=== PATIENT | female | born 1945 | race Caucasian/White ===

== ENCOUNTER 2024-01-18 13:16 | Inpatient (IN) | payer MEDICARE, SELFPAY ==
[2024-01-18] VITALS (51 sets, daily range): BP systolic 127–254; BP diastolic 45–152; BMI 30.4
[2024-01-18 10:07] LABS: % Basophils 1.2 % (0-2); % Eosinophils 2.6 % (0-6); % Immature Granulocytes 0.4 % (0-0.5); % Monocytes 7.7 % (1.7-9.3); % Neutrophils 74.1 % (42.2-75.2); Absolute Basophils 0.1 10^3/uL (0-0.2); Absolute Eosinophils 0.3 10^3/uL (0-0.7); Absolute Lymphocytes 1.4 10^3/uL (1.2-3.4); Absolute Monocytes 0.8 10^3/uL (0.1-0.6); Absolute Neutrophils 7.6 10^3/uL (1.4-6.5); Hematocrit 34.2 % (37.0-47.0); Hemoglobin 11.9 g/dL (12.0-16.0); Mean Corp Hgb Conc. 34.8 g/dL (33.0-37.0); Mean Corpuscular Hgb 31.7 pg (27.0-31.0); Mean Corpuscular Volume 91.2 fL (81.0-99.0); Mean Platelet Volume 10.8 fL (7.4-10.4); Nucleated Red Blood Cells % 0 %; Platelet Count 228 10^3/uL (130-400); Red Blood Cell Count 3.75 10^6/uL (4.20-5.40); Red Cell Dist. Width 12.5 % (11.5-14.5); White Blood Cell Count 10.2 10^3/uL (4.8-10.8)
--- NOTE | 2024-01-18 10:18 | ED.GENMED ---
History of Present Illness
<Rosey Kaye PA-C - Last Filed: 01/18/24 16:08>
General
Chief Complaint: Dizziness
Source: patient and ambulance crew
Exam Limitations: clinical condition
Time Seen by Provider: 01/18/24 10:08
Nursing documentation reviewed up to this point in time: agreed with
Travel History
Have you had any contact with someone who has COVID-19?: No
Do you have any symptoms of coronavirus? Fever > 100 degrees, chills, cough, shortness of breath, sore throat, loss of taste or smell, muscle aches, or headache?: No
History of Present Illness
History of Present Illness:
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
from home via ems after called 911 because pt fell in the bathroom
she apparently got up to go to the bathroom and felt dizzy and then fell to the ground. she believes she hit her head onthe tub without LOC
no thinners
has mild right lateral hip pain but is able to move her hip
her was unablle to help pt up from the ground
according to EMS she has chronic aphasia and has no change to her baseline, but her is not here yet to corroborate.
pt has no headache, back pain, cp, sob, abdominal pain, focal weakness
she has not been able to qualify the dizziness.
pt had a stroke in october 2023 and went to [facility] for rehab
she had NANCY while there.
Past History
<Rosey Kaye PA-C - Last Filed: 01/18/24 16:08>
Past History
ED Past Medical History: Arrthythmia, CAD, HTN, Hypercholesterolemia and NIDDM
ED Past Surgical History: Appendectomy, Cardiac (cabg) and Cholecystectomy
Social History
Tobacco: Non-smoker
Drug: None
Personal:
Review of Systems
<Rosey Kaye PA-C - Last Filed: 01/18/24 16:08>
Review of Systems
Allergies reviewed?: Yes
All Other Systems: Not applicable
Phy Exam
<Rosey Kaye PA-C - Last Filed: 01/18/24 16:08>
Physical Exam
Physical Exam:
GENERAL: Alert , in no apparent distress
head: ncat
EYE: pupils equal and reactive
NECK: Supple
ENT: b/l TM s clear, pharynx erythematous but no tonsillar hypertrophy or exudates
CARDIAC: Regular rate and rhythm, no edema
LUNGS: Clear breath sounds bilaterally, no acute respiratory distress, no wheezes/rales/rhonchi, occ cough
ABDOMEN: Soft, without focal tenderness, no r/g, no cvat, normal bowel sounds
NEUROLOGICAL: Alert and oriented, cn no facial asymmetry, expressive aphasai mixes some words, moving all extremeites
SKIN: Warm and dry, skin intact.
MUSCULOSKELETAL: No edema, well perfused.
no bruising
mild right lateral hip tenderness, full rom
PSYCH: Normal and appropriate interaction.
Course
<Rosey Kaye PA-C - Last Filed: 01/18/24 16:08>
Orders/Labs/Results
Orders:
Orders
01/18/24 09:48
Electrocardiogram (*1) Urgent
Reason for Study: Vertigo / Dizzy
EKG- Treatment ONCE
01/18/24 09:49
Complete Blood Count/With Diff Urgent
Troponin I Urgent
01/18/24 09:53
Cardiac Monitoring- Treatment ONCE
01/18/24 10:18
Hip, Right 2-3 Views [CR Hip - RT w/wo Pel 2-3 Vw*] Urgent
Comment:
Reason For Exam: right lateral hip pain after fall
Include a pelvis x-ray?: Yes
01/18/24 10:19
CT Head W/o Iv Contrast Urgent
Comment:
Reason For Exam: dizzy, fall; h/o cva
01/18/24 10:38
Comprehensive Metabolic Panel Urgent
Magnesium Urgent
Comment: ADD ON
01/18/24 10:49
COVID-19 Antigen Urgent
Source: Nasal Swab
01/18/24 11:30
Nitroglycerin 100 mg/250 ml [Nitroglycerin Premix] 100 mg in 250 ml IV PER PROTOCOL
Initial dose in mcg/min, then titrate:: 5
Titrate to keep:: Other
Titrate to keep other:: SBP between 170-190mmHg
Titrate by mcg/min:: 5 mcg/min, may increase by 10 mcg/min if dose > 20 mcg/min
Frequency of titrations (minutes):: every 3-5 minutes
Maximum dose in mcg/min:: 200
Begin to taper infusion when:: Remained at goal for 2hrs
Taper by mcg/min:: 5 mcg/min
Frequency of taper (minutes) if patient maintains goal:: 30
Taper to off?: Yes
If infusion off & no longer maintaining goal:: Contact Provider
01/18/24 11:44
Straight cath- Treatment ONCE
01/18/24 11:47
Urinalysis Reflex To Culture Urgent
Date Specimen was Collected: 01/18/24
Time Specimen was Collected: 11:46
Urine Microscopic Reflex Cult Urgent
Urine Culture Urgent
AJTIN Source: U
Specimen Description:
Date Specimen was Collected: 01/18/24
Time Specimen was Collected: 11:46
01/18/24 12:37
Admit/Transfer Patient As Directed
Co-Sign Provider:
Level of Care: Inpatient admission
Assign to:: ICU
Physician / Group: marii
Diagnosis: hypertensive emergency
Reason for Hospitalization: hypertensive emergency
Expected length of stay greater than two midnights?: Yes
ELOS- Estimated Length of Stay in days: 2
I certify the patient meets the requirements for IP care: Yes
01/18/24 12:38
Code Status As Directed
Resuscitation Status: Full Code
01/18/24 12:45
0.9% Sodium Chloride 1000 ml [Nss] 1,000 ml IV 80 mls/hr
01/18/24 12:49
Potassium Chloride [KCl] 20 meq PO NOW STA
01/18/24 14:12
Dextrose 50%-Water [Dextrose 50% Syringe] 12.5 grams IV [id number] PRN
Docusate Sodium [Colace] 200 mg PO DAILY PRN
Glucagon [GlucaGen] 1 mg IM PRN PRN
Sennosides [Senokot] 8.6 mg PO DAILY PRN
01/18/24 14:12
Activity As Directed
Activity Level: As Tolerated
Bedside Glucose Monitoring As Directed
Frequency: AC&HS
Comment: Change to q6h if pt on TPN, tube feeding or not eating
Vital Signs As Directed
Frequency: Per unit guidelines
DX Deep Vein Thrombosis Video Routine
01/18/24 Dinner
2000 calorie (17 carb) Diabetic
01/18/24 15:14
Troponin I Q6H
01/18/24 16:30
Insulin Aspart Corrective Low [Novolog Flexpen-Low Resistance] See Protocol SC AC
01/18/24 18:00
Famotidine [Pepcid] 10 mg PO QPM
01/18/24 20:00
Carvedilol [Coreg] 12.5 mg PO BID
Heparin 5,000 units SC Q12
01/18/24 20:12
Troponin I Q6H
01/18/24 22:00
Atorvastatin [Lipitor] 80 mg PO HS
Gabapentin [Neurontin] 300 mg PO HS
01/19/24 02:12
Troponin I Q6H
01/19/24 06:00
Complete Blood Count/With Diff IN AM
Comprehensive Metabolic Panel IN AM
Glycohemoglobin (HgbA1c) IN AM
01/19/24 08:00
Cholecalciferol (Vitamin D3) [VITAMIN D3 (cholecalciferol)] 25 mcg PO DAILY
Clopidogrel Bisulfate [Plavix] 75 mg PO DAILY
Ezetimibe [Zetia] 10 mg PO DAILY
01/19/24 12:00
Escitalopram Oxalate [Lexapro] 10 mg PO NOON
Abnormal Lab Results
01/18/24 01/18/24 01/18/24
09:49 10:38 11:47
RBC 3.75 L 10^6/uL
(4.20-5.40)
Hgb 11.9 L g/dL
(12.0-16.0)
Hct 34.2 L %
(37.0-47.0)
MCH 31.7 H pg
(27.0-31.0)
MPV 10.8 H fL
(7.4-10.4)
Absolute Neuts (auto) 7.6 H 10^3/uL
(1.4-6.5)
Absolute Monos (auto) 0.8 H 10^3/uL
(0.1-0.6)
Lymphocytes % 14.0 L %
(20.5-51.1)
Potassium 3.2 L mmol/L
(3.5-5.1)
BUN 35 H mg/dl
(7-17)
Creatinine 3.0 H mg/dL
(0.6-1.0)
Glucose 134 H mg/dl
(70-99)
Troponin I 0.077 H* ng/ml
Total Protein 5.7 L g/dl
(6.3-8.2)
Albumin 3.2 L g/dl
(3.5-5.0)
Urine RBC 3-6 A /HPF
(0-2)
Urine WBC (Reflex) 11-15 A /HPF
(0-5)
Urine Bacteria (Reflex) Many A
(Negative)
Urine Glucose Trace A
(Negative)
Urine Albumin (Reflex) 3+ A
(Neg - Trace)
01/18/24 09:49
01/18/24 10:38
Vital Signs
Initial and Last Documented VS:
Initial Vital Signs
BP
180/91
01/18/24 09:40
Last Documented Vital Signs
Temp Pulse Resp BP Pulse Ox
97.7 F 59 15 212/83 100
01/18/24 14:45 01/18/24 13:45 01/18/24 13:15 01/18/24 13:45 01/18/24 13:30
<Shaniqua Madden MD - Last Filed: 01/18/24 11:30>
Orders/Labs/Results
Orders:
Orders
01/18/24 09:48
Electrocardiogram (*1) Urgent
Reason for Study: Vertigo / Dizzy
EKG- Treatment ONCE
01/18/24 09:49
Complete Blood Count/With Diff Urgent
Troponin I Urgent
01/18/24 09:53
Cardiac Monitoring- Treatment ONCE
01/18/24 10:18
Hip, Right 2-3 Views [CR Hip - RT w/wo Pel 2-3 Vw*] Urgent
Comment:
Reason For Exam: right lateral hip pain after fall
Include a pelvis x-ray?: Yes
01/18/24 10:19
CT Head W/o Iv Contrast Urgent
Comment:
Reason For Exam: dizzy, fall; h/o cva
01/18/24 10:38
Comprehensive Metabolic Panel Urgent
Magnesium Urgent
Comment: ADD ON
01/18/24 10:49
COVID-19 Antigen Urgent
Source: Nasal Swab
01/18/24 11:30
Nitroglycerin 100 mg/250 ml [Nitroglycerin Premix] 100 mg in 250 ml IV PER PROTOCOL
Initial dose in mcg/min, then titrate:: 5
Titrate to keep:: Other
Titrate to keep other:: SBP between 170-190mmHg
Titrate by mcg/min:: 5 mcg/min, may increase by 10 mcg/min if dose > 20 mcg/min
Frequency of titrations (minutes):: every 3-5 minutes
Maximum dose in mcg/min:: 200
Begin to taper infusion when:: Remained at goal for 2hrs
Taper by mcg/min:: 5 mcg/min
Frequency of taper (minutes) if patient maintains goal:: 30
Taper to off?: Yes
If infusion off & no longer maintaining goal:: Contact Provider
01/18/24 11:44
Straight cath- Treatment ONCE
01/18/24 11:47
Urinalysis Reflex To Culture Urgent
Date Specimen was Collected: 01/18/24
Time Specimen was Collected: 11:46
Urine Microscopic Reflex Cult Urgent
Urine Culture Urgent
JATIN Source: U
Specimen Description:
Date Specimen was Collected: 01/18/24
Time Specimen was Collected: 11:46
01/18/24 12:37
Admit/Transfer Patient As Directed
Co-Sign Provider:
Level of Care: Inpatient admission
Assign to:: ICU
Physician / Group: marii
Diagnosis: hypertensive emergency
Reason for Hospitalization: hypertensive emergency
Expected length of stay greater than two midnights?: Yes
ELOS- Estimated Length of Stay in days: 2
I certify the patient meets the requirements for IP care: Yes
01/18/24 12:38
Code Status As Directed
Resuscitation Status: Full Code
01/18/24 12:45
0.9% Sodium Chloride 1000 ml [Nss] 1,000 ml IV 80 mls/hr
01/18/24 12:49
Potassium Chloride [KCl] 20 meq PO NOW STA
01/18/24 14:12
Dextrose 50%-Water [Dextrose 50% Syringe] 12.5 grams IV [id number] PRN
Docusate Sodium [Colace] 200 mg PO DAILY PRN
Glucagon [GlucaGen] 1 mg IM PRN PRN
Sennosides [Senokot] 8.6 mg PO DAILY PRN
01/18/24 14:12
Activity As Directed
Activity Level: As Tolerated
Bedside Glucose Monitoring As Directed
Frequency: AC&HS
Comment: Change to q6h if pt on TPN, tube feeding or not eating
Vital Signs As Directed
Frequency: Per unit guidelines
DX Deep Vein Thrombosis Video Routine
01/18/24 Dinner
2000 calorie (17 carb) Diabetic
01/18/24 15:14
Troponin I Q6H
01/18/24 16:30
Insulin Aspart Corrective Low [Novolog Flexpen-Low Resistance] See Protocol SC AC
01/18/24 18:00
Famotidine [Pepcid] 10 mg PO QPM
01/18/24 20:00
Carvedilol [Coreg] 12.5 mg PO BID
Heparin 5,000 units SC Q12
01/18/24 20:12
Troponin I Q6H
01/18/24 22:00
Atorvastatin [Lipitor] 80 mg PO HS
Gabapentin [Neurontin] 300 mg PO HS
01/19/24 02:12
Troponin I Q6H
01/19/24 06:00
Complete Blood Count/With Diff IN AM
Comprehensive Metabolic Panel IN AM
Glycohemoglobin (HgbA1c) IN AM
01/19/24 08:00
Cholecalciferol (Vitamin D3) [VITAMIN D3 (cholecalciferol)] 25 mcg PO DAILY
Clopidogrel Bisulfate [Plavix] 75 mg PO DAILY
Ezetimibe [Zetia] 10 mg PO DAILY
01/19/24 12:00
Escitalopram Oxalate [Lexapro] 10 mg PO NOON
Abnormal Lab Results
01/18/24 01/18/24 01/18/24
09:49 10:38 11:47
RBC 3.75 L 10^6/uL
(4.20-5.40)
Hgb 11.9 L g/dL
(12.0-16.0)
Hct 34.2 L %
(37.0-47.0)
MCH 31.7 H pg
(27.0-31.0)
MPV 10.8 H fL
(7.4-10.4)
Absolute Neuts (auto) 7.6 H 10^3/uL
(1.4-6.5)
Absolute Monos (auto) 0.8 H 10^3/uL
(0.1-0.6)
Lymphocytes % 14.0 L %
(20.5-51.1)
Potassium 3.2 L mmol/L
(3.5-5.1)
BUN 35 H mg/dl
(7-17)
Creatinine 3.0 H mg/dL
(0.6-1.0)
Glucose 134 H mg/dl
(70-99)
Troponin I 0.077 H* ng/ml
Total Protein 5.7 L g/dl
(6.3-8.2)
Albumin 3.2 L g/dl
(3.5-5.0)
Urine RBC 3-6 A /HPF
(0-2)
Urine WBC (Reflex) 11-15 A /HPF
(0-5)
Urine Bacteria (Reflex) Many A
(Negative)
Urine Glucose Trace A
(Negative)
Urine Albumin (Reflex) 3+ A
(Neg - Trace)
01/18/24 09:49
01/18/24 10:38
Vital Signs
Initial and Last Documented VS:
Initial Vital Signs
BP
180/91
01/18/24 09:40
Last Documented Vital Signs
Temp Pulse Resp BP Pulse Ox
97.7 F 59 15 212/83 100
01/18/24 14:45 01/18/24 13:45 01/18/24 13:15 01/18/24 13:45 01/18/24 13:30
<Rosey Kaye PA-C - Last Filed: 01/18/24 16:08>
MDM/Problems Addressed
Differential Diagnosis Includes:
hypertensive urgency/emergency, fall, stroke, acs
MDM/Problems Addressed:
78 y/o F
h/o stroke with residual aphasia
got dizzy in the bathroom today and fell
no LOC
no headache, cp, sob
having elevated BPs 200s/100s;
didn't take her meds today
had to call 911 to get her up
ekg with nonspecific st flattening
very hypertensive both arms
looks otherwise well
trop bumped
cr elevated 3
bladder scan 360, straight cath done
seen by ed attending
started nitro drip and amidtted
<Rosey Kaye PA-C - Last Filed: 01/18/24 16:08>
*Critical Care Note
Total Time (30-74mins, 75-104mins- exclusive of procedures): Not Applicable
ED Attending Note
<Rosey Kaye PA-C - Last Filed: 01/18/24 16:08>
-
Portions of this chart may have been created with voice recognition software.� Occasional wrong word or��sound alike� substitutions may have occurred due to the inherent limitations of voice recognition software.
<Shaniqua Madden MD - Last Filed: 01/18/24 11:30>
ED Attending Note
Patient seen and examined by attending physician: Yes
I performed the substantive portion of visit, reviewed & personally made and approve the management plan that is documented in note by myself or YELITZA.: Yes
ED Attending Note:
Patient presents comfortable appearing. She adamantly denies chest pain or shortness of breath. She denies headache. However, I am concerned for possible hypertensive emergency given her elevated troponin, new T wave flattening and acute renal
failure. Nitro drip started to control her blood pressure. On exam, patient is fully awake, alert and conversational. She is breathing comfortably and lungs are clear.
Discharge Plan
Departure
Patient Disposition: Admit
Date of Disposition: 01/18/24
Time of Disposition: :28
Admit to: IVU
Presentation/result/management discussed w/ accepting MD/DO: Hospitalist
Condition: Fair
Covid-19: Not Applicable
Discharge Problem:
Hypertensive emergency
Interventions
Interventions:
*Risk Screen - Suicide Last Done: 01/18/24 14:39
*General Assessment Last Done: 01/18/24 09:41
*Neglect/Abuse Screening Last Done: 01/18/24 09:41
*ED COVID-19 Vaccine History Last Done: 01/18/24 09:47
*Nursing Disposition Last Done: 01/18/24 13:50
ED-Skin Assessment Last Done: 01/18/24 09:50
ED- Neurological Assessment Last Done: 01/18/24 09:50
ED-Musculoskeletal Assessment Last Done: 01/18/24 09:50
ED Swallowing Screen Last Done: 01/18/24 13:35
Discharge Date and Time
Discharge Date/Time: 01/18/24 14:04
[2024-01-18 10:34] LABS: Troponin I 0.077 ng/ml
[2024-01-18 10:59] LABS: ALT (SGPT) 12 U/L (0-35); AST (SGOT) 24 U/L (14-36); Albumin 3.2 g/dl (3.5-5.0); Alkaline Phosphatase 60 U/L (38-126); Blood Urea Nitrogen 35 mg/dl (7-17); Calcium 8.8 mg/dl (8.4-10.2); Carbon Dioxide 29 mmol/L (22-30); Chloride 106 mmol/L (98-107); Estimated Creatinine Clearance 16 ml/min; Glucose 134 mg/dl (70-99); Potassium 3.2 mmol/L (3.5-5.1); Sodium 138 mmol/L (135-145); Total Bilirubin 0.9 mg/dl (0.2-1.3); Total Protein 5.7 g/dl (6.3-8.2); eGFR 15.62
[2024-01-18 11:17] LABS: COVID-19 Antigen Negative (Negative)
[2024-01-18] MEDS: NITROGLYCERIN PREMIX 250 IV (11:39)
[2024-01-18 12:20] LABS: Urine Albumin 3+ (Neg - Trace); Urine Bilirubin Negative (Negative); Urine Character Clear (Clear); Urine Color Yellow; Urine Glucose Trace (Negative); Urine Ketone Negative (Negative); Urine Leukocyte Negative (Negative); Urine Nitrite Negative (Negative); Urine Occult Blood Negative (Negative); Urine Specific Gravity 1.015 (<1.030); Urine Urobilinogen Negative (Neg - 1+)
[2024-01-18 12:32] LABS: Urine Amorphous Seen
[2024-01-18 12:33] LABS: Urine Bacteria Many (Negative)
--- NOTE | 2024-01-18 12:44 | HPS.HSE ---
Family Physician
-
Family Physician: Anson Bauman MD
Chief Complaint
-
fall
History of Present Illness
78-year-old female past medical history of CAD status post CABG, arrhythmia unknown type, diabetes, CKD, CVA with residual expressive aphasia and right-sided weakness presenting from home after she felt dizzy and fell in the bathroom. She thinks
she did hit her head on the tub but denies losing consciousness. She did hurt her right hip and has some soreness.
She denies any chest pain or shortness of breath or nausea or vomiting or sweating. She denies any difficulty speaking or weakness that is worse than her baseline. She did have some headache in the morning which she continues to have. Denies any
confusion. As per EMS no change in baseline mental status.
Patient states her checks her blood pressure every day and it had been normal until today.
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
She denies smoking or alcohol use.
Medical History
Past Medical History
Past Medical History: Reports Other (CAD status post CABG, arrhythmia unknown type, diabetes, CKD, CVA with residual expressive aphasia)
Past Surgical History: Reports None and Cardiac (CABG )
Social History
Tobacco: Non-smoker
Alcohol: None
Drug: None
Family History
Family History: Not pertinent
Allergies / Home Medications
Allergies reflects when Allergies were last updated in [facility].
Home Medications with original date entered in [facility]
Allergy/Medication List:
Allergies
Allergy/AdvReac Type Severity Reaction Status Date / Time
Cephalosporins Allergy Rash Verified 01/18/24 09:35
penicillin G Allergy Rash Verified 01/18/24 09:35
Penicillins Allergy Rash Verified 01/18/24 09:35
Home Medications
escitalopram oxalate 20 mg tablet 10 mg PO NOON 04/15/16
ezetimibe 10 mg tablet 10 mg PO DAILY 04/15/16
famotidine 20 mg tablet 10 mg PO QPM 04/15/16
Generic Cold Medicine Am 1 cap PO DAILYPRN PRN congestion 01/18/24
Generic Cold Medicine Pm 2 cap PO HSPRN PRN congestion 01/18/24
acetaminophen 650 mg tablet,extended release 1,300 mg PO BIDPRN PRN mild pain 01/18/24
atorvastatin 80 mg tablet 80 mg PO HS 01/18/24
carvedilol 12.5 mg tablet 12.5 mg PO BID 01/18/24
cholecalciferol (vitamin D3) 25 mcg (1,000 unit) tablet 25 mcg PO DAILY 01/18/24
clopidogrel 75 mg tablet 75 mg PO DAILY 01/18/24
docusate sodium 100 mg capsule (Stool Softener) 200 mg PO DAILY PRN constipation 01/18/24
gabapentin 300 mg capsule 300 mg PO HS 01/18/24
insulin glargine 100 unit/mL (3 mL) subcutaneous pen (Lantus Solostar U-100 Insulin) 28 - 32 unit SC HS 01/18/24
insulin lispro 100 unit/mL subcutaneous pen (Humalog KwikPen (U-100) Insulin) 0 sliding scale dose SC DIRECTED 01/18/24
sennosides 8.6 mg tablet (senna) 8.6 mg PO DAILY PRN constipation 01/18/24
Review of Systems
-
History Source: Patient
A 12 point ROS was completed and negative except as noted: Yes
Constitutional: Reports No Symptoms
EENT: Reports No Symptoms
Respiratory: Reports No Symptoms
Cardiac: Reports No Symptoms
Abdomen/GI: Reports No Symptoms
: Reports No Symptoms
Musculoskeletal: Reports No Symptoms
Skin: Reports No Symptoms
Neurological: Reports No Symptoms
Endocrine: Reports No Symptoms
Hematologic/Lymphatic: Reports No Symptoms
Psych: Reports No Symptoms
Physical Exam
Vital Signs
Vital Signs
Temp Pulse Resp BP Pulse Ox
97.8 F 48 15 238/73 99
02/28/24 09:41 01/18/24 12:00 01/18/24 11:34 01/18/24 11:54 01/18/24 12:00
Physical Exam
General: Well Developed, Well Nourished and No Apparent Distress
HEENT: NormoCephalic, Moist mucous membranes and Atraumatic
Respiratory: Clear
Cardiac: S1/S2 and Regular Rhythm; No Murmur or Rub
GI: Soft, Non Tender, Non Distended and Normal Bowel Sounds; No Organomegaly
Rectal: Deferred by Provider
Musculoskeletal: No Clubbing, No Cyanosis and No Edema
Skin: No Rash
Neuro: Nonfocal/grossly intact
Laboratory Results
-
01/18/24 09:49
01/18/24 10:38
Laboratory Results
Total Bilirubin 0.9 mg/dl (0.2-1.3) 01/18/24 10:38
AST 24 U/L (14-36) 01/18/24 10:38
ALT 12 U/L (0-35) 01/18/24 10:38
Alkaline Phosphatase 60 U/L (38-126) 01/18/24 10:38
Troponin I 0.077 ng/ml H* 01/18/24 09:49
Data Reviewed
-
Lab Data: Labs Reviewed by me
Old Records: Reviewed
Impression/Plan
-
IMPRESSION:
PLAN:
# Hypertensive urgency/emergency due to NANCY/potential NSTEMI
-Peak blood pressure 247/63
-Nitroglycerin drip started
-No neurological deficits
-See individually below
# Non-VA troponin elevation secondary to demand ischemia from hypertension versus rule out NSTEMI
# History of CAD status post CABG
-EKG shows PVCs, nonspecific T wave inversions
-Troponin of 0.077
-Trend troponins
-Check chest x-ray
-Continue Plavix
-Continue statin
-Continue Coreg
-Cardiology consulted
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
-IV fluids
-Urinalysis pending
# Hypokalemia
-Replete potassium
# Fall with injury
-Hip x-ray pending
-CT head pending
History of arrhythmia unknown type as per records
Prior CVA with residual expressive aphasia/right-sided weakness
-Continue Plavix
Type 2 diabetes
-Continue Lantus
-Insulin sliding scale
Anxiety/depression
-Continue Lexapro
Hyperlipidemia
-Continue statin, Zetia
Chronic anemia
-Hemoglobin stable
History of kidney stones
Full code
DVT prophylaxis�heparin
Diabetic diet
[2024-01-18] MEDS: KCL 20 MEQ PO (13:41)
[2024-01-18] MEDS: APRESOLINE 10 MG IV (13:41)
[2024-01-18] MEDS: TYLENOL 1000 MG PO (13:42)
--- NOTE | 2024-01-18 14:50 | CON.INTV ---
Documented by User: Kamila Pa MD, Resident 01/18/24 17:16
Consultation
Consultation Request
Date/Time Consultation Requested: 14:00
Date/Time Consultation Performed: 14:00
Medical History
-
Chief Complaint: Syncope
History of Present Illness:
80 yr old female with hx of CVA (Sep 2023), CAD + CABG, arrhythmia, diabetes, CKD presented to ED via EMS following a fall in her bathroom. She stated that she was walking to her bathroom when she felt dizzy and fell to the bathroom floor. She
denies any LOC but reported a mild headache, and minor pain in her hip from impacting the tub upon her fall. Her blood pressure at home was 220/105. She denies any confusion, chest pain, SOB, nausea, sweating, reflux, or cough.
Per her , she has seemed a little more unsteady, ' bumping into things more' and has had more trouble with her speech within the past few days. Of note, she has some residual aphasia and right-sided weakness from a CVA in September for which
she was treated in [place] and continues to receive outpatient rehab. Her husbands checks her blood pressure everyday with an automated cuff and he asserts that her blood pressures are usually under 160s (systolic) and generally range from
130s-140s. Notably, her Carvedilol dose was halved to 12.5mh twice daily after her hospitalization for CVA in September.
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
She sees a human resources vice president with [facility] and has an upcoming appointment in January.
She denies smoking or alcohol use.
Past Medical History
Past Medical History: Arrhythmias, CAD, CVA, HTN, Hypercholesterolemia and IDDM
Past Surgical History: Cardiac
Social History
Tobacco: Non-smoker
Alcohol: None
Drug: None
Personal:
Living: With Family
Family History
Family History: Reviewed & Not Pertinent
Allergies / Home Medications
Allergies
Allergy/AdvReac Type Severity Reaction Status Date / Time
Cephalosporins Allergy Rash Verified 01/18/24 09:35
penicillin G Allergy Rash Verified 01/18/24 09:35
Penicillins Allergy Rash Verified 01/18/24 09:35
Home Medications
Medication Instructions Recorded Confirmed Last Taken Type
escitalopram oxalate 20 mg tablet 10 mg PO [facility] 04/15/16 01/18/24 01/17/24 History
ezetimibe 10 mg tablet 10 mg PO DAILY High Cholesterol 04/15/16 01/18/24 01/17/24 History
famotidine 20 mg tablet 10 mg PO QPM Gastrointestinal Issue 04/15/16 01/18/24 01/17/24 History
Generic Cold Medicine Am 1 cap PO DAILYPRN PRN congestion 01/18/24 01/18/24 01/17/24 History
Generic Cold Medicine Pm 2 cap PO HSPRN PRN congestion 01/18/24 01/18/24 01/17/24 History
acetaminophen 650 mg 1,300 mg PO BIDPRN PRN mild pain 01/18/24 01/18/24 01/18/24 History
tablet,extended release
atorvastatin 80 mg tablet 80 mg PO HS High Cholesterol 01/18/24 01/18/24 01/17/24 History
carvedilol 12.5 mg tablet 12.5 mg PO BID Blood Pressure 01/18/24 01/18/24 01/17/24 History
cholecalciferol (vitamin D3) 25 25 mcg PO DAILY Supplement 01/18/24 01/18/24 01/17/24 History
mcg (1,000 unit) tablet
clopidogrel 75 mg tablet 75 mg PO DAILY Blood Clot 01/18/24 01/18/24 01/17/24 History
Prevention/Tx
docusate sodium 100 mg capsule 200 mg PO DAILY PRN constipation 01/18/24 01/18/24 3 Days Ago History
(Stool Softener) ~01/15/24
gabapentin 300 mg capsule 300 mg PO HS Pain 01/18/24 01/18/24 01/17/24 History
insulin glargine 100 unit/mL (3 28 - 32 unit SC HS Diabetes 01/18/24 01/18/24 01/17/24 History
mL) subcutaneous pen (Lantus
Solostar U-100 Insulin)
insulin lispro 100 unit/mL 0 sliding scale dose SC 01/18/24 01/18/24 01/17/24 History
subcutaneous pen (Humalog KwikPen DIRECTED Diabetes
(U-100) Insulin)
sennosides 8.6 mg tablet (senna) 8.6 mg PO DAILY PRN constipation 01/18/24 01/18/24 3 Days Ago History
~01/15/24
Review of Systems
-
History Source: Patient and Family ()
Constitutional: Fever (n), Fatigue (n) and Other (Headache)
Respiratory: No Symptoms, Cough (n) and Trouble Breathing (n)
Cardiac: Chest Pain, Diaphoresis (n) and Palpitations (n)
Abdomen/GI: No Symptoms
: No Symptoms
Musculoskeletal: Muscle Pain (right hip soreness)
Neuro: Dizzy (n) and Headache
Vitals / Labs / Diagnostic Testing
Vital Signs
Temp Pulse Resp BP Pulse Ox
97.7 F 59 15 212/83 100
01/18/24 14:45 01/18/24 13:45 01/18/24 13:15 01/18/24 13:45 01/18/24 13:30
Lab Data
01/18/24 09:49
01/18/24 10:38
Laboratory Results
01/18/24
15:14
PT 14.4
INR 1.12
APTT 26.2
Diagnostic Testing:
Physical Exam
-
HEENT: Normocephalic, Anicteric and Moist Mucous Membranes
Cardiovascular: S1/S2, Regular Rhythm, Peripheral Edema (n) and Calf Tenderness (n)
Respiratory: Clear, Wheeze (n), Rales, Rhonchi (n), Non-Labored Respirations and Accessory Resp Muscle Use (n)
GI: Soft, Non Distended and Non Tender
Neurology: Awake, Alert, Oriented, AO x 3 and Other (mild dysphasia, mild baseline R sided weakness)
Skin: Warm and Dry
General: Respiratory Distress (n), Comfortable (n) and Fever
Exam:
Right hip mildly tender. No bruising or swelling, range of motion preserved
Assessment
-
Hypertensive emergency
Bradycardia
Elevated Troponin
Acute kidney injury on Chronic kidney disease
Hypokalemia
Elevated Blood glucose
Conditions Prior to Admission:
- Hypertension
- History of CVA
- CAD Status post CABG
- CKD
- Diabetes
- Hyperlipidemia
PLAN:
Hypertensive emergency:
Troponin elevated: 0.077 --> 0.061, trending down
BP on arrival at ED 180/91. Reached to 247/63. Currently controlled at 180s to 190s
Nitroglycerin IV gtt given. Discontinued due to headache. Switched to Nicardipine IV. Carvedilol, Hydralazine PRN for BP control
Goal is 25% reduction in BP in first 24 hrs. Avoid rapid reduction to allow organ perfusion
Bradycardic at HR high 40s to 50s. Patient is asymptomatic. Continue to monitor
NANCY on CKD:
BUN 35, Cr 3.0. Known Creatinine from 2016 1.2
Trend Creatinine
Urine albumin 3+
Avoid nephrotoxic agents
Consider nephrology consult if creatinine trends up
Correct lytes as needed
DATA:
Head CT 01/18: No acute intracranial process
CXR 01/18: Accentuated heart size, top normal. No vascular congestion or congestive heart failure. No evidence of pneumonia. No pneumothorax or pleural effusion appreciated.

Documented by User: Tristan Salter MD 01/18/24 17:18
Consultation
Consultation Request
Date/Time Consultation Requested: 01/18/2024 - 14:17
Date/Time Consultation Performed: 01/18/2024 - 14:25
Requesting Provider: Dr. Johnson
Performing Provider: Dr. Salter
Reason for Consultation: HTN crisis
[2024-01-18] MEDS: NSS 1000 IV (14:53)
[2024-01-18 15:04] LABS: Magnesium 1.9 mg/dl (1.6-2.3)
--- NOTE | 2024-01-18 15:30 | PTCARENOTE ---
Pt arrived to Rm [id number] at 1415 via stretcher from ED. Pt awake and answering questions- expressive aphasia noted which pt reports is unchanged for her. Pt received with Ntg gtt infusing at 5mcg/min at time of arrival. Pt on RA w/ Pox 98%. Denies SOB
or pain. CHG bath completed. Physical assessment and admission questions completed. Pt's not present at this time. Ntg gtt increased per ordered parameters. Orientation provided to pt on unit/plan of care/use of call [facility]. Pt verbalized
understanding of instructions to call and wait for help prior to attempting to get OOB. [facility] w/in pt reach and safe environment maintained. Dr Sow in room to see pt- Ntg gtt d/c'ed per Dr Salter. Will continue to monitor BP and start
Cardene if BP w/in ordered parameters.
[2024-01-18 15:40] LABS: APTT 26.2 Sec (23.4-35.0); INR 1.12; PT 14.4 Sec (11.4-14.6)
[2024-01-18 15:50] LABS: Troponin I 0.061 ng/ml
[2024-01-18] MEDS: KLOR-CON 40 MEQ PO (15:59)
[2024-01-18] MEDS: PEPCID 10 MG PO (17:21)
[2024-01-18] MEDS: NOVOLOG FLEXPEN-LOW RESISTANCE SC (17:21)
--- NOTE | 2024-01-18 17:56 | PTCARENOTE ---
Pt to radiology for ordered xray. No changes from previous assessment findings. Pt's and son visiting at bedside.
[2024-01-18] MEDS: COREG 12.5 MG PO (19:48)
[2024-01-18] MEDS: HEPARIN 5000 UNITS SC (19:48)
--- NOTE | 2024-01-18 20:16 | PTCARENOTE ---
Received patient AAOx3, following commands, denying pain. Expressive aphasia present intermittently. Moves all extremities. Normal sinus/sinus narendra with a first degree block and long QT. BP 170s-180s/40s-50s. 97% on room air, lung sounds clear,
diminished at the bases. Abdomen soft, round, obese, positive bowel sounds. No urine output yet this shift. Bruising on right hip from fall prior to admission. PIV patent, WNL, NSS @ 80 mls/hr running. Hourly rounding and patient safety checks
ongoing.
--- NOTE | 2024-01-18 21:01 | PTCARENOTE ---
Cannot verify vitals prior to 1900, previous shift.
[2024-01-18] MEDS: NEURONTIN 300 MG PO (21:38)
[2024-01-18] MEDS: LIPITOR 80 MG PO (21:38)
[2024-01-18] MEDS: LANTUS 0.280000000000000027 UNITS SC (21:38)
[2024-01-18 22:08] LABS: Blood Urea Nitrogen 36 mg/dl (7-17); Calcium 8.1 mg/dl (8.4-10.2); Carbon Dioxide 26 mmol/L (22-30); Chloride 107 mmol/L (98-107); Estimated Creatinine Clearance 16 ml/min; Glucose 169 mg/dl (70-99); Potassium 3.7 mmol/L (3.5-5.1); Sodium 133 mmol/L (135-145); eGFR 16.27
[2024-01-18 22:16] LABS: Troponin I 0.054 ng/ml
[2024-01-18 23:39] LABS: Glucose - Point of Care > 600 mg/dl (70-99)
[2024-01-19] VITALS (42 sets, daily range): BP systolic 96–230; BP diastolic 41–94; BMI 31.4
[2024-01-19 00:02] LABS: Glucose 143 mg/dl (70-99)
--- NOTE | 2024-01-19 00:17 | PTCARENOTE ---
PCT obtained bedside blood sugar with glucometer reading >600, blood sugar checked with a stat glucose blood draw and came back 143. Gloria Mccracken NP aware, glucometer reading >600 inaccurate. Glucometer controls done, strips not , control
solutions not .
--- NOTE | 2024-01-19 00:22 | PTCARENOTE ---
Patient voided 300 mls after being scanned for 329 mls. Otherwise patient assessment unchanged from previous. Hourly rounding and patient safety checks ongoing.
--- NOTE | 2024-01-19 04:31 | PTCARENOTE ---
Patient forgetful, reoriented to place and situation. Otherwise patient assessment unchanged from previous.
[2024-01-19] MEDS: NSS 1000 IV ×2 (05:05→17:12)
[2024-01-19 05:23] LABS: % Immature Granulocytes 0.4 % (0-0.5); % Lymphocytes 23.1 % (20.5-51.1); % Monocytes 11.3 % (1.7-9.3); % Neutrophils 62.2 % (42.2-75.2); Absolute Basophils 0.1 10^3/uL (0-0.2); Absolute Eosinophils 0.2 10^3/uL (0-0.7); Absolute Lymphocytes 1.7 10^3/uL (1.2-3.4); Absolute Monocytes 0.8 10^3/uL (0.1-0.6); Absolute Neutrophils 4.6 10^3/uL (1.4-6.5); Hematocrit 27.7 % (37.0-47.0); Hemoglobin 9.6 g/dL (12.0-16.0); Mean Corp Hgb Conc. 34.7 g/dL (33.0-37.0); Mean Corpuscular Hgb 31.3 pg (27.0-31.0); Mean Corpuscular Volume 90.2 fL (81.0-99.0); Mean Platelet Volume 10.7 fL (7.4-10.4); Nucleated Red Blood Cells % 0 %; Platelet Count 189 10^3/uL (130-400); Red Blood Cell Count 3.07 10^6/uL (4.20-5.40); Red Cell Dist. Width 12.7 % (11.5-14.5); White Blood Cell Count 7.3 10^3/uL (4.8-10.8)
[2024-01-19 05:24] LABS: Amphetamines Negative (Negative); Barbiturates Negative (Negative); Benzodiazepines Negative (Negative); Buprenorphine Negative (Negative); Cocaine Negative (Negative); Methadone Negative (Negative); Methamphetamines Negative (Negative); Opiates Negative (Negative); Phencyclidine Negative (Negative)
[2024-01-19 05:25] LABS: Marijuana Negative (Negative); Tricyclic Antidepressants Negative (Negative)
[2024-01-19 05:28] LABS: ALT (SGPT) < 10 U/L (0-35); AST (SGOT) 22 U/L (14-36); Albumin 2.9 g/dl (3.5-5.0); Alkaline Phosphatase 49 U/L (38-126); Blood Urea Nitrogen 35 mg/dl (7-17); Calcium 8.4 mg/dl (8.4-10.2); Carbon Dioxide 27 mmol/L (22-30); Chloride 109 mmol/L (98-107); Estimated Creatinine Clearance 16 ml/min; Glucose 83 mg/dl (70-99); Potassium 3.3 mmol/L (3.5-5.1); Sodium 138 mmol/L (135-145); Total Protein 5.1 g/dl (6.3-8.2); eGFR 16.27
[2024-01-19 05:37] LABS: Total Bilirubin 0.8 mg/dl (0.2-1.3)
[2024-01-19 05:58] LABS: TSH Reflex To Free T4 2.28 uIU/ml (0.47-4.68)
[2024-01-19] MEDS: KCL 40 MEQ PO (06:22)
--- NOTE | 2024-01-19 06:24 | PTCARENOTE ---
Repleted potassium PO, patient wants to get washed up later, requests to sleep longer.
--- NOTE | 2024-01-19 07:58 | W.PN.INTV ---
Today's Communication / Plan
Recommendations
Cardene gtt and start procardia
Goal SBP this afternoon <140-160mmHg
Follow up echo
Secondary HTN workup
Assessment
-
Assessment: 78-year-old female never smoker with a past medical history of of CKD, CHF, DM type II on insulin, history of AV block, hypertension, hyperlipidemia and history of stroke who presents from home after falling.� Patient reports she felt
dizzy and then fell without loss of consciousness or head trauma.� She has a history of stroke with residual right-sided weakness.� In the ER BP was 230/86 with SBP as high as 254mmHg, and she was saturating 100% on room air.� Labs showed
hypokalemia to 3.2, NANCY with creatinine of 3, initial troponin elevated to 0.077, initial WBC normal at 10.2, Hb 11.9, platelets 228.� COVID antigen negative.� Urinalysis shows many bacteria with 11�15 urine WBCs.� Due to her hypertensive crisis,
nitroglycerin drip started and patient transferred to the ICU for further care with critical care services consulted for additional management/recommendations.
Impression:
#HTN crisis � unknown if due to secondary hypertension vs uncontrolled primary HTN in setting of stress
#Bradycardia � EKG appears to be mix between junctional and sinus narendra - HR now improved and is in 60-70s
#Anemia (mild)
#Hypokalemia
#Positive urine Cx - suspect asymptomatic bacteriuria as she has no dysuria, frequency, abd pain or urgency
#Acute kidney injury � unknown baseline but suspect she has CKD
#Elevated troponin � likely type II ND due to HTN crisis - troponin peaked at 0.077 on 01/18/2024
#Hx of right occipital stroke (October 2023 at OSH)
Plan:
- Start cardene gtt and start PO anti-HTN with Procardia XL 30mg
- Reduce SBP by 25% in the first 24 hrs � goal SBP today will be 170-190mmHg, but in afternoon will lower BP goal to SBP<140-160mmHg - of note, she says her SBP was 280mmHg at home
- Secondary HTN workup with renin:aldosterone, serum metanephrines, urine metanephrines, TSH, free T4, urine Tox, and renal arterial Doppler
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
- Hold off on Abx for now given she remains asymptomatic with normal WBC and she is afebrile ---> if spikes fever or decompensates then start ABx
- Maintain MAP>65
- Replete K>3.5, Mg>1.8
- trend sCr and UOP with goal >0.5cc/kg/hr; if Cr worsens then c/s nephrology, ray if pt also hyperkalemic or becomes volume overloaded
- No need to continue trending cTnI given it peaked at 0.077
- Follow up TTE
- DVT ppx
Critical care statement: A total of 40 minutes of critical care time was provided for this patient today. This includes management of unstable vital signs, evaluation of the patient at bedside, reviewing the patient's pertinent medical records
including radiographs, microbiology, laboratory evaluations, and discussion with primary team, consultants, pharmacy, nutrition, physical therapy, case management, charge nurse, critical care nursing, and respiratory therapy.
Data:
Head CT 01/18:
Old 5 cm right occipital infarct
There are no acute intracranial abnormalities.
There is moderate diffuse cortical atrophy with moderate nonspecific white matter changes
CXR 01-18-2024:
Lordotic projection. Accentuated heart size, top normal. No vascular congestion or congestive heart failure. No evidence of pneumonia. No pneumothorax or pleural effusion appreciated.
Subjective Dataa
Subjective Data
Date of Service:
Date of Service: January 19, 2024
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
Subjective:
Seen and evaluated this AM while she was getting an echo. Weaned off nitro gtt yesterday. Cardene gtt never started. She feels well this AM - denies chest pain, EGAN, SOB, abd pain, N/V/f/c.
Review of Systems
General: Other (Negative less mentioned above)
Objective Data
Data Reviewed
Vital Signs / I&O / Oxygen:
Vital Signs
Temp Pulse Resp BP Pulse Ox
98.6 F 62 18 203/92 92
01/19/24 07:42 01/19/24 09:49 01/19/24 06:17 01/19/24 09:49 01/19/24 06:17
Intake and Output
01/18/24 01/19/24 01/20/24
06:59 06:59 06:59
Intake Total 1520 / 1520
Output Total 300 / 300
Balance 1220 / 1220
SaO2 92
Nasal Cannula flow liters per 99
minute
Physical Exam
General: Comfortable
HEENT: Normocephalic and Anicteric
Cardiovascular: S1-S2 and Peripheral Edema (negative)
Respiratory: Clear, Wheeze (negative), Crackles (negative), Rhonchi (negative) and Accessory Resp Muscle Use (negative)
GI: Soft, Non Distended and Non Tender
Neurology: Awake and Alert
Skin: Warm and Dry
Labs/Micro/Reports
Lab Data
01/19/24 04:59
01/19/24 04:59
Laboratory Results
01/18/24
15:14
PT 14.4
INR 1.12
APTT 26.2
[2024-01-19 08:16] LABS: Glucose - Point of Care 95 mg/dl (70-99)
[2024-01-19] MEDS: NOVOLOG FLEXPEN-LOW RESISTANCE SC ×2 (08:30→13:50)
[2024-01-19] MEDS: HEPARIN 5000 UNITS SC ×2 (08:32→17:00)
[2024-01-19] MEDS: VITAMIN D3 (cholecalciferol) 25 MCG PO (08:33)
[2024-01-19] MEDS: PLAVIX 75 MG PO (08:33)
[2024-01-19] MEDS: ZETIA 10 MG PO (08:34)
[2024-01-19] MEDS: COREG 12.5 MG PO ×2 (09:00→20:21)
[2024-01-19 09:32] LABS: Glycohemoglobin (HgbA1c) 6.6 % (4.0-5.6)
[2024-01-19] MEDS: APRESOLINE 10 MG IV (09:49)
--- NOTE | 2024-01-19 11:58 | CM ---
CM following re: discharge planning.
Reviewed pt's chart, met with pt.
Pt is a 78 year old female, admitted with primary dx of HTN crisis and falling at home.
Pt presents lying in the bed with some difficulties to express her feelings. At one point pt stated she lives with and from another one pt stated she lives with son and after some pause pt corrected that she lives with and son lives
close by. Pt stated she lives with in a 2SH, 2 steps to enter, has 2 supportive sons and they live close by. 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 No DME, VN or SNF history per pt.
PT and OT will evaluate the pt to determine a level of care at discharge.
PCP: Anson Bauman MD
Pharmacy: [facility]
D/C plan: uncertain at this time. Awaiting for PT/OT evaluations and recommendations.
CM will follow with discharge plan updates as hospitalization progresses
[2024-01-19 12:25] LABS: Glucose - Point of Care 130 mg/dl (70-99)
--- NOTE | 2024-01-19 12:30 | PTCARENOTE ---
Complete assessment done this am and documented. Pt oriented to name, 'hospital', but not month or year. Pt able to MERCADO bilat, with equal strength,, upper and ower exts. Pt with SB 52-61, BP was elevated, coreg morning dose given for BP. Dr Salter
updated. Apresoline 10 mg given at 0950 for BP 203/92. Cardene 40 mg/200 ml iv drip started at 1220, keeping sys BP [id number]ter. Pt on R/A O2 sat=99%, decreased BS at bases bilat. Pt ate 80% of her breakfast. Pt's sacrum sl
reddened, and foam drsg applied for protection. Marcelina care done, and purewick changed.
[2024-01-19 12:37] LABS: Glucose - Point of Care 127 mg/dl (70-99)
[2024-01-19] MEDS: LEXAPRO 10 MG PO (13:00)
--- NOTE | 2024-01-19 13:14 | PTCARENOTE ---
Cardene drip decreased to 1.2 mg/hr for sys BP 155/. Lunch ordered. Pt resting comfortably.
[2024-01-19] MEDS: PROCARDIA XL (EXTENDED RELEASE) 30 MG PO (13:54)
--- NOTE | 2024-01-19 14:43 | W.PN.HOSP.TC ---
Today's Communication/Plan
-
All discussed with the patient
Called her and left a message
Assessment / Plan
Assessment / Plan
Physical exam:
General: Sleepy, arousable, oriented x3, not in distress and holds appropriate conversation.
HEENT: No active discharge, ecchymosis or bruising, moist lips, tongue and mucous membrane.
Eyes: No discharge or red conjunctiva, no nystagmus, pupils are reactive and equal
Neck:Supple, no JVD no bruit no goiter.
Respiratory: Normal AP contour and diameter, normal chest wall movement, normal respiratory effort, no respiratory distress,
Lungs: Good air entry bilaterally, no wheezing or rhonchi, no rales or crackles
Heart: S1, S2 regular, normal rate, no added sound.
Gastrointestinal: Positive bowel sounds, soft, nontender, no guarding or rigidity or organomegaly
Musculoskeletal: , no chest wall abnormality or tenderness. All joints and extremities have good range of motion, no muscle tenderness or any joint swelling or tenderness.
Extremities: No pitting edema, good peripheral pulses, good range of motion
Skin: Warm and dry, no ulceration, normal color.
Neurological: Awake, alert and oriented x3, no facial droop, normal mental, speech clear and comprehensive, good muscle tone, normal sensory and motor function
Psychiatric: Normal mood, normal thought and judgment, normal affect,
Assessment and plan:
PLAN:
# Hypertensive urgency/emergency due to NANCY
-Peak blood pressure 247/63, improving, was on nitro drip but then changed to Cardene drip.
-Oral med.
-Monitor blood pressure closely
-Get a cardiology consult specialist elevated troponin and poorly controlled hypertension
- care input appreciated
-No neurological deficits
-See individually below
# Non-NJ troponin elevation secondary to demand ischemia from hypertension versus rule out NSTEMI
# History of CAD status post CABG
-EKG shows PVCs, nonspecific T wave inversions
-Troponin of 0.077
-Trend troponins
-Check chest x-ray
-Continue Plavix
-Continue statin
-Continue Coreg
-Cardiology consult
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
-Stable, was 2.9 yesterday and today's last 1.2 few months ago but usually range around 2.
-Went for toxin.
Amount of protein consider nephrology consult. Next
# Hypokalemia
-Replete potassium and recheck
# Fall with injury
-Hip x-ray pending
-CT head pending
History of arrhythmia unknown type as per records
Prior CVA with residual expressive aphasia/right-sided weakness
-Continue Plavix
Type 2 diabetes
-Continue Lantus
-Insulin sliding scale
-Sugar under good range
Anxiety/depression
-Continue Lexapro
Hyperlipidemia
-Continue statin, Zetia
Chronic anemia
-Hemoglobin stable
History of kidney stones
Full code
DVT prophylaxis�heparin
Diabetic diet
Anticipated Discharge: > 48 hours
Subjective/Interval History
-
Date of Service: January 19, 2024
Seen and examined, sleepy arousable, awake, alert and oriented x 3 and all appropriate conversation, denies any chest pain or shortness of breath or fever or chill, pressure is improving admit the last couple day her pressures been fluctuating
around despite being compliant with medication.
Objective Data
-
Labs:
Laboratory Results
01/19/24
04:59
WBC 7.3
Hgb 9.6 L
Hct 27.7 L
Plt Count 189
Sodium 138
Potassium 3.3 L
Chloride 109 H
Carbon Dioxide 27
BUN 35 H
Creatinine 2.9 H
Glucose 83
Calcium 8.4
Total Bilirubin 0.8
AST 22
ALT < 10
Alkaline Phosphatase 49
Vital Signs:
Vital Signs
Temp Pulse Resp BP Pulse Ox
98.3 F 72 14 162/71 97
01/19/24 11:44 01/19/24 14:30 01/19/24 14:30 01/19/24 14:30 01/19/24 14:15
I&O
01/18/24 01/19/24 01/20/24
07:59 07:59 07:59
Intake Total 1600 / 1680 823.7 / 823.7
Output Total 300 / 300 600 / 600
Balance 1300 / 1380 223.7 / 223.7
Review of Systems
-
All other systems: Reviewed and negative
--- NOTE | 2024-01-19 17:13 | CON.CAR ---
Addendum entered and electronically signed by Beny Feng MD 01/19/24 17:49:
I saw and examined the patient.
The SR. MEDIA MANAGER's note was reviewed and I agree with the note.
Comment: 78 y/o female with CAD s/p CABG, DM, CKD, hx CVA who is here for evaluation after dizziness with fall. BP was quite elevated requiring nitro drip, which was transitioned to Cardene drip. Now on Procardia and BB continued. BP has improved.
- continue carvedilol and nifedipine
- BP appears to have normalized
- nephro consult for NANCY
We will signoff please call back with questions/concerns.
Original Note:
Consultation
Consultation Request
Date/Time Consultation Requested: 01/19/24 1455
Date/Time Consultation Performed: 01/19/24 1700
Requesting Provider: Dr. Garcia
Performing Provider: Navya ANDUJAR for Dr. Feng
Reason for Consultation: hypertensive emergency, abnormal troponin
Medical History
-
Chief Complaint: dizziness with fall
History of Present Illness:
78 y/o female with CAD s/p CABG, DM, CKD, hx CVA who is here for evaluation after dizziness with fall. BP was quite elevated requiring nitro drip, which was transitioned to Cardene drip. Now on Procardia and BB continued. BP has improved. She also
has renal dysfunction. Trop was mildly elevated in this setting. She denies any CP or SOB. Echo is normal. Tele is stable. She is in no distress at the time of my assessment. She follows with Dr. España for cardiac management.
Past Medical History
Past Medical History: CAD, CVA, NIDDM and Renal Failure
Social History
Personal:
Living: With Family
Family History
Family History: Reviewed & Not Pertinent
Allergies / Home Medications
Allergy/AdvReac Type Severity Reaction Status Date / Time
Cephalosporins Allergy Rash Verified 01/18/24 09:35
penicillin G Allergy Rash Verified 01/18/24 09:35
Penicillins Allergy Rash Verified 01/18/24 09:35
Medication Instructions Recorded Confirmed Type
escitalopram oxalate 20 mg tablet 10 mg PO [facility] 04/15/16 01/18/24 History
ezetimibe 10 mg tablet 10 mg PO DAILY High Cholesterol 04/15/16 01/18/24 History
famotidine 20 mg tablet 10 mg PO QPM Gastrointestinal Issue 04/15/16 01/18/24 History
Generic Cold Medicine Am 1 cap PO DAILYPRN PRN congestion 01/18/24 01/18/24 History
Generic Cold Medicine Pm 2 cap PO HSPRN PRN congestion 01/18/24 01/18/24 History
acetaminophen 650 mg 1,300 mg PO BIDPRN PRN mild pain 01/18/24 01/18/24 History
tablet,extended release
atorvastatin 80 mg tablet 80 mg PO HS High Cholesterol 01/18/24 01/18/24 History
carvedilol 12.5 mg tablet 12.5 mg PO BID Blood Pressure 01/18/24 01/18/24 History
cholecalciferol (vitamin D3) 25 25 mcg PO DAILY Supplement 01/18/24 01/18/24 History
mcg (1,000 unit) tablet
clopidogrel 75 mg tablet 75 mg PO DAILY Blood Clot 01/18/24 01/18/24 History
Prevention/Tx
docusate sodium 100 mg capsule 200 mg PO DAILY PRN constipation 01/18/24 01/18/24 History
(Stool Softener)
gabapentin 300 mg capsule 300 mg PO HS Pain 01/18/24 01/18/24 History
insulin glargine 100 unit/mL (3 28 - 32 unit SC HS Diabetes 01/18/24 01/18/24 History
mL) subcutaneous pen (Lantus
Solostar U-100 Insulin)
insulin lispro 100 unit/mL 0 sliding scale dose SC 01/18/24 01/18/24 History
subcutaneous pen (Humalog KwikPen DIRECTED Diabetes
(U-100) Insulin)
sennosides 8.6 mg tablet (senna) 8.6 mg PO DAILY PRN constipation 01/18/24 01/18/24 History
Review of Systems
-
History Source: Patient
All other systems: Negative unless noted
Neurological: Other (dizziness with fall)
Physical Exam
Vital Signs
Temp Pulse Resp BP Pulse Ox
98.9 F 72 14 162/71 97
01/19/24 16:07 01/19/24 14:30 01/19/24 14:30 01/19/24 14:30 01/19/24 14:15
Lab Results
01/19/24 04:59
01/19/24 04:59
Troponin I Cancelled 01/19/24 03:30
Physical Exam
General: Well Developed, Well Nourished and No Apparent Distress
HEENT: Normocephalic and Anicteric
Respiratory: Clear and Non Labored Respirations
Cardiac: Regular Rhythm
Breast: Deferred by me
Skin: Warm and Dry
Neuro: AO x 3 and Other (expressive aphasia)
Psych: Calm
Impression / Plan
-
Hypertensive emergency:
-much improved with management per primary team
-continue Coreg and Procardia
-of note, patient may have labile BP's (with autonomic dysfunction) s/p stroke, so monitor closely
Abnormal troponin:
-non-ischemic myocardial injury in setting of NANCY, elevated BP
-no CP or SOB
NANCY on CKD:
-consider nephrology consultation
Hx CAD s/p CABG per chart:
-denies any CP
Hx CVA:
-on plavix and statin
Data Reviewed
-
EKG: Tracing Personally Visualized and interpreted (SB with PVC's)
Medical Tests (Nuc Med, Echo etc): Report Reviewed by me (Echo 01/19/24: Normal left ventricular size and systolic function. LV ejection fraction is 60-65%. Mild concentric left ventricular hypertrophy. No significant valvular disease.)
Labs: Labs Reviewed by me
[2024-01-19 17:45] LABS: Glucose - Point of Care 172 mg/dl (70-99)
[2024-01-19] MEDS: PEPCID 10 MG PO (18:42)
--- NOTE | 2024-01-19 18:44 | PTCARENOTE ---
Pt resting comfortably. BP stable 128/55, with cardene drip off. Marcelina care done. Pt ate 100% of dinner.
[2024-01-19] MEDS: NOVOLOG FLEXPEN-LOW RESISTANCE 1 UNITS SC (18:53)
--- NOTE | 2024-01-19 20:10 | PTCARENOTE ---
Received patient in bed, following commands, drowsy, arouses to verbal stimuli. AAOx2, disoriented to time. Moves all extremities. Normal sinus/sinus narendra, 50s-70s. First degree heart block, long QT. BP stable, 120s-140s/40s-60s. Cardene gtt off
since 1600. 96% on room air, lung sounds clear, diminished at the bases. Purewick in place draining clear, yellow urine. No BM yet this shift. Bruising on right hip from fall. PIVs patent, WNL, NSS @ 80 mls/hr infusing. Hourly rounding and patient
safety checks ongoing.
[2024-01-19] MEDS: LIPITOR 80 MG PO (22:05)
[2024-01-19] MEDS: NEURONTIN 300 MG PO (22:05)
[2024-01-19] MEDS: LANTUS 0.280000000000000027 UNITS SC (22:07)
[2024-01-19 22:28] LABS: Glucose - Point of Care 159 mg/dl (70-99)
[2024-01-20] VITALS (25 sets, daily range): BP systolic 93–193; BP diastolic 38–146; BMI 32.0; BMI 31.9
[2024-01-20] MEDS: HEPARIN 5000 UNITS SC ×3 (00:17→16:13)
--- NOTE | 2024-01-20 00:55 | PTCARENOTE ---
Patient assessment unchanged from previous, resting comfortably in bed. Hourly rounding and patient safety checks ongoing.
[2024-01-20 03:23] LABS: % Basophils 1.3 % (0-2); % Eosinophils 4.4 % (0-6); % Immature Granulocytes 0.3 % (0-0.5); % Monocytes 8.8 % (1.7-9.3); % Neutrophils 57.2 % (42.2-75.2); Absolute Basophils 0.1 10^3/uL (0-0.2); Absolute Eosinophils 0.3 10^3/uL (0-0.7); Absolute Lymphocytes 1.7 10^3/uL (1.2-3.4); Absolute Monocytes 0.5 10^3/uL (0.1-0.6); Absolute Neutrophils 3.5 10^3/uL (1.4-6.5); Hematocrit 29.3 % (37.0-47.0); Mean Corp Hgb Conc. 34.1 g/dL (33.0-37.0); Mean Corpuscular Hgb 31.6 pg (27.0-31.0); Mean Corpuscular Volume 92.7 fL (81.0-99.0); Mean Platelet Volume 10.5 fL (7.4-10.4); Nucleated Red Blood Cells % 0 %; Platelet Count 164 10^3/uL (130-400); Red Blood Cell Count 3.16 10^6/uL (4.20-5.40); Red Cell Dist. Width 12.7 % (11.5-14.5); White Blood Cell Count 6.2 10^3/uL (4.8-10.8)
--- NOTE | 2024-01-20 03:30 | PTCARENOTE ---
assumed care of patient- pt resting with eyes closed, arousable to voice, assessment unchanged from previously documented.
[2024-01-20 03:56] LABS: Blood Urea Nitrogen 33 mg/dl (7-17); Carbon Dioxide 22 mmol/L (22-30); Chloride 114 mmol/L (98-107); Estimated Creatinine Clearance 17 ml/min; Glucose 99 mg/dl (70-99); Magnesium 1.8 mg/dl (1.6-2.3); Phosphorus 4.1 mg/dl (2.5-4.5); Potassium 3.8 mmol/L (3.5-5.1); Sodium 137 mmol/L (135-145); eGFR 16.27
[2024-01-20 04:21] LABS: TSH 3.03 uIU/ml (0.47-4.68)
[2024-01-20] MEDS: NSS 1000 IV (05:21)
[2024-01-20 07:36] LABS: Glucose - Point of Care 126 mg/dl (70-99)
--- NOTE | 2024-01-20 08:01 | W.PN.INTV ---
Today's Communication / Plan
Recommendations
Continue procardia and up-titrate as tolerated
Goal SBP <140-160mmHg
Secondary HTN workup
Patient stable for transfer out of ICU to telemetry. Applications Administrator/pulmonary service will sign off. Please reconsult if any respiratory issues develop.
Assessment
-
Assessment: 78-year-old female never smoker with a past medical history of of CKD, CHF, DM type II on insulin, history of AV block, hypertension, hyperlipidemia and history of stroke who presents from home after falling.� Patient reports she felt
dizzy and then fell without loss of consciousness or head trauma.� She has a history of stroke with residual right-sided weakness.� In the ER BP was 230/86 with SBP as high as 254mmHg, and she was saturating 100% on room air.� Labs showed
hypokalemia to 3.2, NANCY with creatinine of 3, initial troponin elevated to 0.077, initial WBC normal at 10.2, Hb 11.9, platelets 228.� COVID antigen negative.� Urinalysis shows many bacteria with 11�15 urine WBCs.� Due to her hypertensive crisis,
nitroglycerin drip started and patient transferred to the ICU for further care with critical care services consulted for additional management/recommendations.
Impression:
#HTN crisis (crisis now resolved)� unknown if due to secondary hypertension vs uncontrolled primary HTN in setting of stress
#Bradycardia � EKG appears to be mix between junctional and sinus narendra - HR now improved and is in 70s
#Anemia (mild) - stable
#Hypokalemia - improved
#Positive urine Cx - suspect asymptomatic bacteriuria as she has no dysuria, frequency, abd pain or urgency
#Acute kidney injury (stable) � unknown baseline but suspect she has CKD
#Elevated troponin � likely type II [place] due to HTN crisis - troponin peaked at 0.077 on 01/18/2024
#Hx of right occipital stroke (October 2023 at OSH)
Plan:
- Continue procardia and raise to 30mg BID, but caution not to cause hypotension
- Continue coreg - unable to up-titrate unless HR remains >70 as she was bradycardic on admission
- Goal SBP<140-160mmHg - of note, says her SBP was 220mmHg at home
- Follow up secondary HTN workup with renin:aldosterone, serum metanephrines, urine metanephrines; TSH normal, so is renal arterial Doppler as well as U-tox
- her strip stamp straightener was performing a vasculitis workup - follow up ANCA and cryoglobulin
- Hold off on Abx for now given she remains asymptomatic with normal WBC and she is afebrile ---> if spikes fever or decompensates then start ABx
- Maintain MAP>65
- Replete K>3.5, Mg>1.8
- trend sCr and UOP with goal >0.5cc/kg/hr; nephrology consulted - recs appreciated
- No need to continue trending cTnI given it peaked at 0.077
- DVT ppx
Dispo: Stable for transfer out of ICU to telemetry. Applications Administrator/pulmonary service will sign off. Please reconsult if any respiratory issues develop. Thank you for allowing me to be involved in the care of this patient.
Data:
Head CT 01/18:
Old 5 cm right occipital infarct
There are no acute intracranial abnormalities.
There is moderate diffuse cortical atrophy with moderate nonspecific white matter changes
CXR 01-18-2024:
Lordotic projection. Accentuated heart size, top normal. No vascular congestion or congestive heart failure. No evidence of pneumonia. No pneumothorax or pleural effusion appreciated.
TTE 01-19-2024:�
Normal left ventricular size and systolic function. LV ejection fraction is 60-
�65%.
�Mild concentric left ventricular hypertrophy.
�
�No significant valvular disease.
�
�No prior study available for comparison.
Subjective Dataa
Subjective Data
Date of Service:
Date of Service: January 20, 2024
Chief Complaint: Applications Administrator Follow Up
Subjective:
Cardene gtt off since 3PM yesterday. She is doing well. Denies any overnight events. Says she has no EGAN, chest pain, abd pain, N/V/f/c. BP 164/66, RR 20, HR 70 and SpO2 96% on room air.
Review of Systems
General: Other (negative unless mentioned above)
Objective Data
Data Reviewed
Vital Signs / I&O / Oxygen:
Vital Signs
Temp Pulse Resp BP Pulse Ox
97.9 F 67 13 193/68 93
01/20/24 08:13 01/20/24 08:29 01/20/24 08:29 01/20/24 08:29 01/20/24 08:29
Intake and Output
01/19/24 01/20/24 01/21/24
06:59 06:59 06:59
Intake Total 1520 / 1600 2304.9 / 2384.9 160 / 160
Output Total 300 / 300 1100 / 1100
Balance 1220 / 1300 1204.9 / 1284.9 160 / 160
SaO2 93
Nasal Cannula flow liters per 99
minute
Physical Exam
General: Comfortable
HEENT: Normocephalic and Anicteric
Cardiovascular: S1-S2 and Peripheral Edema (negative)
Respiratory: Clear, Wheeze (negative), Crackles (negative), Rhonchi (negative) and Accessory Resp Muscle Use (negative)
GI: Soft, Non Distended and Non Tender
Neurology: Awake and Alert
Skin: Warm and Dry
Labs/Micro/Reports
Lab Data
01/20/24 03:07
01/20/24 03:07
Microbiology
01/18/24 11:47 Urine Urine Culture - Preliminary
Enterococcus species
[2024-01-20] MEDS: COREG 12.5 MG PO ×2 (08:32→22:18)
[2024-01-20] MEDS: PLAVIX 75 MG PO (08:32)
[2024-01-20] MEDS: ZETIA 10 MG PO (08:32)
[2024-01-20] MEDS: PROCARDIA XL (EXTENDED RELEASE) 30 MG PO (08:32)
[2024-01-20] MEDS: VITAMIN D3 (cholecalciferol) 25 MCG PO (08:32)
--- NOTE | 2024-01-20 08:41 | PN.CDI ---
CDI
- -
CDI:
Physician Documentation Request
Admit Date: 01/18/24 13:16
Dear Doctor Radha,
Please review the following and provide your response in the progress notes.
Clinical Indicators:
- PN 'Acute kidney injury on CKD'
- 'Stable, was 2.9 yesterday and today's last 1.2 few months ago but usually range around 2.'
Laboratory Tests
01/18/24 01/19/24 01/20/24
10:38 04:59 03:07
Creatinine 3.0 H 2.9 H 2.9 H
eGFR 15.62 16.27 16.27
Please clarify which of the following accurately represents the patient's renal status:
NANCY on CKD 3
CKD 4, NANCY ruled out
Other
Criteria for NANCY*
1 Increase in serum creatinine by > or = to 0.3 mg/dL (> or = to 26.5 micromol/L) within 48 hours, OR
2 Increase in serum creatinine to > or = to 1.5 times baseline, which is known or presumed to have occurred within 7 days, OR
3 Urine volume < 0.5 nL/kg/hour for six hours
Stages of Chronic Kidney Disease*
Level Description GFR
G1 Normal or High >90
G2 Mildly decreased 60-89
G3a Mildly to moderately decreased 45-59
G3b Moderately to severely decreased 30-44
G4 Severely decreased 15-29
G5 Kidney failure <15
Use of terms such as suspected, likely, concern for, or probable (associated with a specific diagnosis that is being evaluated, monitored, or treated as if it exists) are acceptable and can be coded in the inpatient setting, when documented at the
time of discharge.
Thank you,
Marilia De La Torre RN
CDI Specialist
Please use your independent medical judgment in providing your response.
*Source: Kidney Disease: Improving Global Outcomes (KDIGO) 2012
[2024-01-20] MEDS: NOVOLOG FLEXPEN-LOW RESISTANCE SC (08:45)
--- NOTE | 2024-01-20 08:48 | PN.CDI ---
CDI
- -
CDI:
Physician Documentation Request
Admit Date: 01/18/24 13:16
Dear Doctor Radha,
Please review the following and provide your response in the progress notes.
Clinical Indicators:
- Playground Equipment Erector 'Elevated troponin � likely type II [place] due to HTN crisis'
- Cardiology 'Abnormal troponin...non-ischemic myocardial injury in setting of NANCY, elevated BP'
- PN 'Non-DC troponin elevation secondary to demand ischemia from hypertension versus rule out NSTEMI'
Please clarify the following regarding the documented myocardial infarction
Type II [place] due to demand ischemia from hypertensive crisis
Non-ischemic Myocardial injury
NSTEMI
Other
Use of terms such as suspected, likely, concern for, or probable (associated with a specific diagnosis that is being evaluated, monitored, or treated as if it exists) are acceptable and can be coded in the inpatient setting, when documented at the
time of discharge.
Thank you,
Marilia De La Torre RN
CDI Specialist
Please use your independent medical judgment in providing your response.
--- NOTE | 2024-01-20 09:01 | PTCARENOTE ---
Complete assessment done this am and documented. Pt oriented to name but not month or year. Pt able to MERCADO bilat, with equal strength,, upper and lower exts. Pt with SB 50s, BP was elevated, coreg morning dose given for BP. Dr Salter updated.
Apresoline 10 mg given at 0950 for BP 203/92. Cardene 40 mg/200 ml iv drip started at 1220, BP [id number]. Pt on RA, SpO2 94-96%. Foam drsg applied for protection. Marcelina care done, and purewick changed.
--- NOTE | 2024-01-20 09:35 | W.CON.NEPH ---
Consultation
-
Date/Time Consultation Requested: 01/20/2024 800
Date/Time Consultation Performed: 01/20/2024 938
Requesting Provider: Dr. Garcia
Performing Provider: Dr. Baca
Reason for Consultation: Acute kidney injury, hypertensive urgency
Medical History
-
Chief Complaint: Hypertensive urgency, acute kidney injury
History of Present Illness:
78-year-old female with CAD status post CABG, arrhythmia unknown type, diabetes mellitus type II, CVA with residual expressive aphasia and right-sided weakness presenting from home after she felt dizzy and fell in the bathroom.� She thinks she did
hit her head on the tub but denies losing consciousness.� She did hurt her right hip and has some soreness.
Her blood pressures were found to be quite elevated at 200 systolic. She was placed on a Cardene drip and placed in the ICU. Her Cardene was weaned yesterday. Her blood pressures remain elevated.
Patient states her checks her blood pressure every day and it had been normal until today. Actual numbers are not known.
She does not recall being told about CKD but thinks that it may have been brought up. She had blood work done recently for her regular diabetes checkup.
She is currently critically ill in the ICU
Past Medical History
Coronary artery disease, bypass grafting, diabetes mellitus type 2, stroke with residual aphasia, hyperlipidemia, peripheral neuropathy
Social History
Tobacco: Non-Smoker
Alcohol: None
Family History
No CKD
Allergies / Home Medications
Allergy/AdvReac Type Severity Reaction Status Date / Time
Cephalosporins Allergy Rash Verified 01/18/24 09:35
penicillin G Allergy Rash Verified 01/18/24 09:35
Penicillins Allergy Rash Verified 01/18/24 09:35
Medication Instructions Recorded Confirmed Type
escitalopram oxalate 20 mg tablet [address] [facility] 04/15/16 01/18/24 History
ezetimibe 10 mg tablet 10 mg PO DAILY High Cholesterol 04/15/16 01/18/24 History
famotidine 20 mg tablet 10 mg PO QPM Gastrointestinal Issue 04/15/16 01/18/24 History
Generic Cold Medicine Am 1 cap PO DAILYPRN PRN congestion 01/18/24 01/18/24 History
Generic Cold Medicine Pm 2 cap PO HSPRN PRN congestion 01/18/24 01/18/24 History
acetaminophen 650 mg 1,300 mg PO BIDPRN PRN mild pain 01/18/24 01/18/24 History
tablet,extended release
atorvastatin 80 mg tablet 80 mg PO HS High Cholesterol 01/18/24 01/18/24 History
carvedilol 12.5 mg tablet 12.5 mg PO BID Blood Pressure 01/18/24 01/18/24 History
cholecalciferol (vitamin D3) 25 25 mcg PO DAILY Supplement 01/18/24 01/18/24 History
mcg (1,000 unit) tablet
clopidogrel 75 mg tablet 75 mg PO DAILY Blood Clot 01/18/24 01/18/24 History
Prevention/Tx
docusate sodium 100 mg capsule 200 mg PO DAILY PRN constipation 01/18/24 01/18/24 History
(Stool Softener)
gabapentin 300 mg capsule 300 mg PO HS Pain 01/18/24 01/18/24 History
insulin glargine 100 unit/mL (3 28 - 32 unit SC HS Diabetes 01/18/24 01/18/24 History
mL) subcutaneous pen (Lantus
Solostar U-100 Insulin)
insulin lispro 100 unit/mL 0 sliding scale dose SC 01/18/24 01/18/24 History
subcutaneous pen (Humalog KwikPen DIRECTED Diabetes
(U-100) Insulin)
sennosides 8.6 mg tablet (senna) 8.6 mg PO DAILY PRN constipation 01/18/24 01/18/24 History
Review of Systems
-
No chest pain or shortness of breath. No headache. No lightheadedness currently. The remainder of the complete review of systems was negative.
Physical Exam
Vital Signs
Vital Signs
Temp Pulse Resp BP Pulse Ox
97.9 F 67 13 193/68 93
01/20/24 08:13 01/20/24 08:29 01/20/24 08:29 01/20/24 08:29 01/20/24 08:29
Lab Results
WBC 6.2 10^3/uL (4.8-10.8) 01/20/24 03:07
RBC 3.16 10^6/uL (4.20-5.40) L 01/20/24 03:07
Hgb 10.0 g/dL (12.0-16.0) L 01/20/24 03:07
Hct 29.3 % (37.0-47.0) L 01/20/24 03:07
Plt Count 164 10^3/uL (130-400) 01/20/24 03:07
Sodium 137 mmol/L (135-145) 01/20/24 03:07
Potassium 3.8 mmol/L (3.5-5.1) 01/20/24 03:07
Chloride 114 mmol/L (98-107) H 01/20/24 03:07
Carbon Dioxide 22 mmol/L (22-30) 01/20/24 03:07
BUN 33 mg/dl (7-17) H 01/20/24 03:07
Creatinine 2.9 mg/dL (0.6-1.0) H 01/20/24 03:07
eGFR 16.27 01/20/24 03:07
Glucose 99 mg/dl (70-99) 01/20/24 03:07
Calcium 8.0 mg/dl (8.4-10.2) L 01/20/24 03:07
Phosphorus 4.1 mg/dl (2.5-4.5) 01/20/24 03:07
Albumin 2.9 g/dl (3.5-5.0) L 01/19/24 04:59
Physical Exam
General: AOx3
HEENT: PERRL, EOMI, Ear/Nose Intact, Oropharynx Clear/Moist, Neck Supple, Trachea Midline and No Thyromegaly
Respiratory: Clear
Cardiac: Regular Rate/Rhythm and No Edema
Abdomen: Soft, Nontender, Nondistended, Normal Bowel Sounds and No Hepatosplenomegaly
Skin: No Rash and Normal Turgor
Psych: Mood/afflect pleasant and Insight/judgement good
Assessment/Plan
-
Assessment
Hypertensive urgency
Acute kidney injury
History of stroke
Hyperlipidemia
Elevated troponin
Diabetes mellitus type 2
Plan
Nifedipine will be increased to twice daily. Carvedilol will be continued.
Secondary hypertensive workup is pending. No renal artery stenosis was noted.
Serial BMPs. Replace potassium as required.
We will try and obtain recent blood work for past creatinine values.
As needed hydralazine
Critical care time spent 31 minutes
Data Reviewed
-
Radiology: Image Personally Visualized and interpreted (Chest x-ray on 01/18/2024 by my reading shows cardiomegaly)
CT Scan: Report Reviewed by me (CT head with no acute disease but old right occipital infarct)
Ultrasound: Report Reviewed by me (Renal duplex on 01/19/2024 with right kidney 9.8 cm, left kidney 11.8 cm, no stenosis)
Medical Tests (Nuc Med, Echo etc): Report Reviewed by me (Echocardiogram on 01/19/2024 shows 60% ejection fraction, mild concentric LVH)
Labs: Labs Reviewed by me
Old Records: Requested
[2024-01-20] MEDS: NOVOLOG FLEXPEN-LOW RESISTANCE 1 UNITS SC (11:50)
[2024-01-20] MEDS: LEXAPRO 10 MG PO (11:51)
[2024-01-20 11:54] LABS: Glucose - Point of Care 161 mg/dl (70-99)
--- NOTE | 2024-01-20 14:55 | CM ---
CM following re: discharge planning.
Discussed in Rounds, reviewed pt's chart, met with pt.
Per Rounds meeting, pt oriented to name but not month or year, continue supportive care, Nephrology, Cardiology following.
Pt lives with in a 2SH, 2 steps to enter, has 2 supportive sons and they live close by. 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
PT and OT will evaluate the pt to determine a level of care at discharge.
D/C plan: uncertain at this time. Awaiting for PT/OT evaluations and recommendations.
CM will follow with discharge plan updates as hospitalization progresses
--- NOTE | 2024-01-20 15:59 | W.PN.HOSP.TC ---
Addendum entered and electronically signed by Giovanna Garcia MD 01/23/24 20:17:
Other diagnoses:
NANCY on CKD 3
Type II [place] due to demand ischemia from hypertensive crisis
Original Note:
Today's Communication/Plan
-
All discussed with the patient
Still with allergist/pediatric pulmonologist and the nurse
Assessment / Plan
Assessment / Plan
Physical exam:
General: Sleepy, arousable, oriented x3, not in distress and holds appropriate conversation.
HEENT: No active discharge, ecchymosis or bruising, moist lips, tongue and mucous membrane.
Eyes: No discharge or red conjunctiva, no nystagmus, pupils are reactive and equal
Neck:Supple, no JVD no bruit no goiter.
Respiratory: Normal AP contour and diameter, normal chest wall movement, normal respiratory effort, no respiratory distress,
Lungs: Good air entry bilaterally, no wheezing or rhonchi, no rales or crackles
Heart: S1, S2 regular, normal rate, no added sound.
Gastrointestinal: Positive bowel sounds, soft, nontender, no guarding or rigidity or organomegaly
Musculoskeletal: , no chest wall abnormality or tenderness. All joints and extremities have good range of motion, no muscle tenderness or any joint swelling or tenderness.
Extremities: No pitting edema, good peripheral pulses, good range of motion
Skin: Warm and dry, no ulceration, normal color.
Assessment and plan:
PLAN:
# Hypertensive urgency/emergency due to NANCY
Blood pressure is improving,
Discussed with allergist/pediatric pulmonologist and transfer out of the unit
Nephrology wanted to be monitored at least for the 24-hour specially with elevated creatinine of her baseline.
-Peak blood pressure 247/63, improving, was on nitro drip but then changed to Cardene drip.
-Oral med.
-Monitor blood pressure closely
-Get a cardiology consult specialist elevated troponin and poorly controlled hypertension
- care input appreciated
-No neurological deficits
-See individually below
# Non-[place] troponin elevation secondary to demand ischemia from hypertension versus rule out NSTEMI
# History of CAD status post CABG
-EKG shows PVCs, nonspecific T wave inversions
-Troponin of 0.077
-Trend troponins
-Check chest x-ray
-Continue Plavix
-Continue statin
-Continue Coreg
-Cardiology consult
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
-Stable, was 2.9 yesterday and today's last 1.2 few months ago but usually range around 2.
Creatinine still 2.9
Nephrology appreciated
To be monitored.
-Went for toxin.
# Hypokalemia
-Replete potassium and recheck
# Fall with injury
-Hip x-ray pending
-CT head pending
History of arrhythmia unknown type as per records
Prior CVA with residual expressive aphasia/right-sided weakness
-Continue Plavix
Type 2 diabetes
-Continue Lantus
-Insulin sliding scale
-Sugar under good range
Anxiety/depression
-Continue Lexapro
Hyperlipidemia
-Continue statin, Zetia
Chronic anemia
-Hemoglobin stable
History of kidney stones
Full code
DVT prophylaxis�heparin
Diabetic diet
Anticipated Discharge: 24 - 48 hours
Subjective/Interval History
-
Date of Service: January 20, 2024
Seen and examined, awake and alert, denies any chest pain or shortness of breath or fever or chill, blood pressure is improving well renal function still elevated. No new
Objective Data
-
Vital Signs:
Vital Signs
Temp Pulse Resp BP Pulse Ox
98.7 F 63 18 155/130 96
01/20/24 15:51 01/20/24 15:00 01/20/24 15:00 01/20/24 15:00 01/20/24 15:00
I&O
01/19/24 01/20/24 01/21/24
07:59 07:59 07:59
Intake Total 1600 / 1680 2304.9 / 2384.9 560 / 560
Output Total 300 / 300 1100 / 1100 500 / 500
Balance 1300 / 1380 1204.9 / 1284.9 60 / 60
Review of Systems
-
All other systems: Reviewed and negative
--- NOTE | 2024-01-20 16:01 | W.PN.HOSP.TC ---
Assessment / Plan
Assessment / Plan
Physical exam:
General: Sleepy, arousable, oriented x3, not in distress and holds appropriate conversation.
HEENT: No active discharge, ecchymosis or bruising, moist lips, tongue and mucous membrane.
Eyes: No discharge or red conjunctiva, no nystagmus, pupils are reactive and equal
Neck:Supple, no JVD no bruit no goiter.
Respiratory: Normal AP contour and diameter, normal chest wall movement, normal respiratory effort, no respiratory distress,
Lungs: Good air entry bilaterally, no wheezing or rhonchi, no rales or crackles
Heart: S1, S2 regular, normal rate, no added sound.
Gastrointestinal: Positive bowel sounds, soft, nontender, no guarding or rigidity or organomegaly
Musculoskeletal: , no chest wall abnormality or tenderness. All joints and extremities have good range of motion, no muscle tenderness or any joint swelling or tenderness.
Extremities: No pitting edema, good peripheral pulses, good range of motion
Skin: Warm and dry, no ulceration, normal color.
Assessment and plan:
PLAN:
# Hypertensive urgency/emergency due to NANCY
Blood pressure is improving,
Discussed with intelligence manager and transfer out of the unit
Nephrology wanted to be monitored at least for the 24-hour specially with elevated creatinine of her baseline.
-Peak blood pressure 247/63, improving, was on nitro drip but then changed to Cardene drip.
-Oral med.
-Monitor blood pressure closely
-Get a cardiology consult specialist elevated troponin and poorly controlled hypertension
- care input appreciated
-No neurological deficits
-See individually below
# Non-[place] troponin elevation secondary to demand ischemia from hypertension versus rule out NSTEMI
# History of CAD status post CABG
-EKG shows PVCs, nonspecific T wave inversions
-Troponin of 0.077
-Trend troponins
-Check chest x-ray
-Continue Plavix
-Continue statin
-Continue Coreg
-Cardiology consult
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
-Stable, was 2.9 yesterday and today's last 1.2 few months ago but usually range around 2.
Creatinine still 2.9
Nephrology appreciated
To be monitored.
-Went for toxin.
# Hypokalemia
-Replete potassium and recheck
# Fall with injury
-Hip x-ray pending
-CT head pending
History of arrhythmia unknown type as per records
Prior CVA with residual expressive aphasia/right-sided weakness
-Continue Plavix
Type 2 diabetes
-Continue Lantus
-Insulin sliding scale
-Sugar under good range
Anxiety/depression
-Continue Lexapro
Hyperlipidemia
-Continue statin, Zetia
Chronic anemia
-Hemoglobin stable
History of kidney stones
Full code
DVT prophylaxis�heparin
Diabetic diet
Subjective/Interval History
-
Date of Service: January 20, 2024
Objective Data
-
Vital Signs:
Vital Signs
Temp Pulse Resp BP Pulse Ox
98.7 F 63 18 155/130 96
01/20/24 15:51 01/20/24 15:00 01/20/24 15:00 01/20/24 15:00 01/20/24 15:00
I&O
01/19/24 01/20/24 01/21/24
07:59 07:59 07:59
Intake Total 1600 / 1680 2304.9 / 2384.9 560 / 560
Output Total 300 / 300 1100 / 1100 500 / 500
Balance 1300 / 1380 1204.9 / 1284.9 60 / 60
[2024-01-20] MEDS: NOVOLOG FLEXPEN-LOW RESISTANCE 2 UNITS SC (16:12)
[2024-01-20] MEDS: PEPCID 10 MG PO (16:13)
[2024-01-20 16:23] LABS: Glucose - Point of Care 220 mg/dl (70-99)
--- NOTE | 2024-01-20 18:39 | PTCARENOTE ---
report given to M/S floor. Pt assisted to wheel chair and escorted to [id number].
[2024-01-20 21:27] LABS: Glucose - Point of Care 234 mg/dl (70-99)
[2024-01-20] MEDS: LANTUS 0.280000000000000027 UNITS SC (22:18)
[2024-01-20] MEDS: LIPITOR 80 MG PO (22:18)
[2024-01-20] MEDS: NEURONTIN 300 MG PO (22:18)
[2024-01-21] VITALS (8 sets, daily range): BP systolic 142–193; BP diastolic 51–73; PULSE 68; BMI 31.4
[2024-01-21] MEDS: HEPARIN 5000 UNITS SC ×4 (00:35→23:07)
[2024-01-21] MEDS: APRESOLINE 10 MG IV ×2 (00:35→22:07)
--- NOTE | 2024-01-21 07:49 | W.PN.HOSP.TC ---
Today's Communication/Plan
-
see bold
Assessment / Plan
Assessment / Plan
# Hypertensive urgency/emergency due to NANCY
S/p ICU
Started on nifedipine 30 mg daily
Blood pressure elevated, will increase nifedipine to 30 mg twice daily
Continue Coreg 12.5 mg bid
Being worked up for secondary hypertension
Renal artery ultrasound negative for renal artery stenosis
Plasma metanephrines are negative
Renin/aldosterone ratio pending also neg
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
Creatinine 3.1 today, was 2.9 yesterday, per nephrology her baseline is about 2.3
Nephrology following
#Weakness
PT/OT - rec HH
# Non-ME troponin elevation secondary to demand ischemia from hypertension versus rule out NSTEMI
# History of CAD status post CABG
Seen by cardiology, who suspect nonischemic myocardial injury in the setting of NANCY, elevated BNP
Cardiology has signed off
# Hypokalemia
Repleted and resolved
# Fall with injury
Head CT negative for acute intracranial abnormalities, hip x-ray negative for acute fracture or dislocation
History of arrhythmia unknown type as per records
Prior CVA with residual expressive aphasia/right-sided weakness
-Continue Plavix
Type 2 diabetes
-Continue Lantus
-Insulin sliding scale
-Sugar under good range
Anxiety/depression
-Continue Lexapro
Hyperlipidemia
-Continue statin, Zetia
Chronic anemia
-Hemoglobin stable
History of kidney stones
DVT prophylaxis�subcu heparin
Full code
Physical Exam
General: Obese, No acute distress
HEENT: Normocephalic, Atraumatic, EOMI, MMM
Respiratory: Clear to Auscultation bilaterally
Cardiac: Normal S1/S2, Regular Rate and Rhythm
GI: Soft, Nontender, Nondistended, Normal Bowel Sounds
Extremities: No Clubbing, Cyanosis, or Edema
Neuro: Nonfocal/Grossly Intact
Psych: Calm, Cooperative
Derm: No Visible lesions
Anticipated Discharge: Within 24 hours
Subjective/Interval History
-
Date of Service: January 21, 2024
Patient reports feeling weak today. No headache, no nausea, no vomiting. No chest pain, no shortness of breath.
Objective Data
-
Labs:
Laboratory Results
01/21/24
06:00
WBC Pending
Hgb Pending
Hct Pending
Plt Count Pending
Sodium Pending
Potassium Pending
Chloride Pending
Carbon Dioxide Pending
BUN Pending
Creatinine Pending
Glucose Pending
Calcium Pending
Vital Signs:
Vital Signs
Temp Pulse Resp BP Pulse Ox
97.8 F 61 18 151/51 95
01/21/24 03:38 01/21/24 03:38 01/21/24 03:38 01/21/24 03:38 01/21/24 03:38
I&O
01/20/24 01/21/24 01/22/24
06:59 06:59 06:59
Intake Total 2304.9 / 2384.9 1120 / 1120
Output Total 1100 / 1100 500 / 500
Balance 1204.9 / 1284.9 620 / 620
[2024-01-21 08:35] LABS: Glucose - Point of Care 95 mg/dl (70-99)
[2024-01-21] MEDS: NOVOLOG FLEXPEN-LOW RESISTANCE SC (08:40)
[2024-01-21 08:43] LABS: Hematocrit 28.4 % (37.0-47.0); Hemoglobin 9.6 g/dL (12.0-16.0); Mean Corp Hgb Conc. 33.8 g/dL (33.0-37.0); Mean Corpuscular Volume 94.7 fL (81.0-99.0); Mean Platelet Volume 10.8 fL (7.4-10.4); Platelet Count 181 10^3/uL (130-400); Red Cell Dist. Width 12.8 % (11.5-14.5); White Blood Cell Count 6.7 10^3/uL (4.8-10.8)
[2024-01-21 09:13] LABS: Blood Urea Nitrogen 32 mg/dl (7-17); Calcium 8.4 mg/dl (8.4-10.2); Carbon Dioxide 26 mmol/L (22-30); Chloride 111 mmol/L (98-107); Estimated Creatinine Clearance 16 ml/min; Glucose 92 mg/dl (70-99); Magnesium 1.7 mg/dl (1.6-2.3); Phosphorus 3.5 mg/dl (2.5-4.5); Potassium 3.5 mmol/L (3.5-5.1); Sodium 138 mmol/L (135-145); eGFR 15.02
[2024-01-21] MEDS: ZETIA 10 MG PO (09:28)
[2024-01-21] MEDS: VITAMIN D3 (cholecalciferol) 25 MCG PO (09:28)
[2024-01-21] MEDS: PLAVIX 75 MG PO (09:28)
[2024-01-21] MEDS: PROCARDIA XL (EXTENDED RELEASE) 30 MG PO ×2 (09:30→19:33)
[2024-01-21] MEDS: COREG 12.5 MG PO ×2 (09:30→19:33)
[2024-01-21] MEDS: LEXAPRO 10 MG PO (11:20)
[2024-01-21 11:24] LABS: Renin Activity Results <0.1 ng/mL/hr
--- NOTE | 2024-01-21 11:27 | W.PN.NEPH.PH ---
Today's Communication / Plan
-
meds adjusted for BP
Assessment/Plan
-
Assessment
Hypertensive urgency
Acute kidney injury
History of stroke
Hyperlipidemia
Elevated troponin
Diabetes mellitus type 2
Plan
Could increase Nifedipine to twice daily as well, may be easier that TID hydralazine at home
Secondary hypertensive workup is pending. No renal artery stenosis was noted.
follow BMP
old labs indicate Cr 2.3 recently, with U Microalb/Cr 5000. She has seen nephrology at [facility] recently and is in the process of doing the CKD w/u as an outpatient.
-
-
Date of Service: January 21, 2024
CC / HPI / ROS
-
Chief Complaint:
NNACY
History of Present Illness:
NANCY/Cr stable at 3
BP still high stable
hgb stable
Review of Systems:
no CP/SOB
Labs
-
Labs:
WBC 6.7 10^3/uL (4.8-10.8) 01/21/24 08:15
RBC 3.00 10^6/uL (4.20-5.40) L 01/21/24 08:15
Hgb 9.6 g/dL (12.0-16.0) L 01/21/24 08:15
Hct 28.4 % (37.0-47.0) L 01/21/24 08:15
Plt Count 181 10^3/uL (130-400) 01/21/24 08:15
Sodium 138 mmol/L (135-145) 01/21/24 08:15
Potassium 3.5 mmol/L (3.5-5.1) 01/21/24 08:15
Chloride 111 mmol/L (98-107) H 01/21/24 08:15
Carbon Dioxide 26 mmol/L (22-30) 01/21/24 08:15
BUN 32 mg/dl (7-17) H 01/21/24 08:15
Creatinine 3.1 mg/dL (0.6-1.0) H 01/21/24 08:15
eGFR 15.02 01/21/24 08:15
Glucose 92 mg/dl (70-99) 01/21/24 08:15
Calcium 8.4 mg/dl (8.4-10.2) 01/21/24 08:15
Phosphorus 3.5 mg/dl (2.5-4.5) 01/21/24 08:15
Albumin 2.9 g/dl (3.5-5.0) L 01/19/24 04:59
Physical Exam
-
Vital Signs:
Vital Signs
Temp Pulse Resp BP Pulse Ox
98.0 F 69 18 142/52 99
01/21/24 07:00 01/21/24 07:00 01/21/24 07:00 01/21/24 11:20 01/21/24 07:00
Cardiovascular:: Regular rate and rhythm
Respiratory:: Bilateral: Coarse
Lung Excursion:: Normal
Abdomen:: Nontender and Soft
Bowel Sounds:: Normal
Extremity Edema:: +1: Bilateral:
[2024-01-21 12:14] LABS: Glucose - Point of Care 203 mg/dl (70-99)
[2024-01-21] MEDS: NOVOLOG FLEXPEN-LOW RESISTANCE 2 UNITS SC (12:55)
[2024-01-21 17:02] LABS: Glucose - Point of Care 162 mg/dl (70-99)
[2024-01-21] MEDS: NOVOLOG FLEXPEN-LOW RESISTANCE 1 UNITS SC (17:28)
[2024-01-21] MEDS: PEPCID 10 MG PO (17:29)
[2024-01-21 21:58] LABS: Glucose - Point of Care 170 mg/dl (70-99)
[2024-01-21] MEDS: LANTUS 0.280000000000000027 UNITS SC (22:01)
[2024-01-21] MEDS: COLACE 200 MG PO (22:02)
[2024-01-21] MEDS: NEURONTIN 300 MG PO (22:02)
[2024-01-21] MEDS: LIPITOR 80 MG PO (22:02)
[2024-01-22] VITALS (7 sets, daily range): BP systolic 141–175; BP diastolic 61–105; BMI 31.6
[2024-01-22 01:55] LABS: Myeloperoxidase Antibody 0 AU/mL (0-19); Serine Protease-3, IgG 1 AU/mL (0-19)
[2024-01-22 05:47] LABS: Glucose - Point of Care 122 mg/dl (70-99)
--- NOTE | 2024-01-22 07:17 | PTCARENOTE ---
pt HR 50-70's ; however she kept dropping to 30-40's w/ pauses both asleep and awake. ekg showed Sb, 1avb, pvc, consider lateral ischemia. informed FLOOR HAND Nori Odell
[2024-01-22 07:43] LABS: Glucose - Point of Care 98 mg/dl (70-99)
--- NOTE | 2024-01-22 08:30 | PTCARENOTE ---
Pt very somnolent this morning, arouses to voice but falls asleep quickly. BP 174/66, monitor showing SB, HR 30-40s. Dr. Solano made aware, EKG & ABGs obtained.
[2024-01-22] MEDS: PLAVIX 75 MG PO (08:58)
[2024-01-22] MEDS: PROCARDIA XL (EXTENDED RELEASE) 30 MG PO ×2 (08:58→20:30)
[2024-01-22] MEDS: ZETIA 10 MG PO (09:02)
[2024-01-22] MEDS: NOVOLOG FLEXPEN-LOW RESISTANCE SC ×3 (09:03→17:50)
[2024-01-22 09:07] LABS: Mean Corp Hgb Conc. 34.5 g/dL (33.0-37.0); Mean Corpuscular Hgb 31.9 pg (27.0-31.0); Mean Corpuscular Volume 92.7 fL (81.0-99.0); Mean Platelet Volume 10.9 fL (7.4-10.4); Platelet Count 193 10^3/uL (130-400); Red Blood Cell Count 3.13 10^6/uL (4.20-5.40); White Blood Cell Count 5.9 10^3/uL (4.8-10.8)
[2024-01-22 09:20] LABS: Blood Urea Nitrogen 33 mg/dl (7-17); Calcium 8.6 mg/dl (8.4-10.2); Carbon Dioxide 26 mmol/L (22-30); Chloride 110 mmol/L (98-107); Estimated Creatinine Clearance 16 ml/min; Glucose 98 mg/dl (70-99); Magnesium 1.7 mg/dl (1.6-2.3); Potassium 3.5 mmol/L (3.5-5.1); Sodium 138 mmol/L (135-145); eGFR 15.62
[2024-01-22] MEDS: HEPARIN 5000 UNITS SC ×3 (09:42→23:12)
--- NOTE | 2024-01-22 09:42 | W.PN.HOSP.TC ---
Addendum entered and electronically signed by Logan Solano MD 01/22/24 17:52:
Nursing staff reports that patient is alert, awake, back to her usual mentation. No head CT needed.
Original Note:
Today's Communication/Plan
-
see bold
Assessment / Plan
Assessment / Plan
# Hypertensive urgency/emergency due to NANCY
S/p ICU
Blood pressure improved with increasing nifedipine from 30 mg daily to 30 mg twice a day
Holding Coreg today secondary to bradycardia
Secondary hypertensive workup is negative
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
Creatinine 3.0 today, was 3.1, was 2.9 yesterday, per nephrology her baseline is about 2.3
Nephrology following
#Bradycardia with pauses
Discussed with cardiology, they will ask EP to see her tomorrow
#Hypersomnolence on 01/21
Nursing staff reports patient did not sleep overnight since she was constantly awoken for repeat EKGs due to bradycardia
She does awaken for me, but seems confused
ABG shows mild hypercapnia with a pCO2 of 44, she is compensated with a pH 7.43
Will let her nap this morning, monitor mental status
If she continues to be hypersomnolent, will order head CT this evening
#Weakness
PT/OT - rec HH
# Non-CT troponin elevation secondary to demand ischemia from hypertension versus rule out NSTEMI
# History of CAD status post CABG
Seen by cardiology, who suspect nonischemic myocardial injury in the setting of NANCY, elevated BNP
Cardiology has signed off
# Hypokalemia
Repleted and resolved
# Fall with injury
Head CT negative for acute intracranial abnormalities, hip x-ray negative for acute fracture or dislocation
History of arrhythmia unknown type as per records
Prior CVA with residual expressive aphasia/right-sided weakness
-Continue Plavix
Type 2 diabetes
-Continue Lantus, sliding scale insulin, diabetic diet
Anxiety/depression
-Continue Lexapro
Hyperlipidemia
-Continue statin, Zetia
Chronic anemia
-Hemoglobin stable
History of kidney stones
DVT prophylaxis�subcu heparin
Full code
Total time spent to see the patient on the floor, examine the patient, review data and lab results, discuss treatment plan with patient, nursing staff around 51 minutes.
Physical Exam
General: Obese, No acute distress
HEENT: Normocephalic, Atraumatic, EOMI, MMM
Respiratory: Clear to Auscultation bilaterally
Cardiac: Normal S1/S2, Regular Rate and Rhythm
GI: Soft, Nontender, Nondistended, Normal Bowel Sounds
Extremities: No Clubbing, Cyanosis, or Edema
Neuro: Somnolent
Psych: Calm, Cooperative
Derm: No Visible lesions
Anticipated Discharge: 24 - 48 hours
Subjective/Interval History
-
Date of Service: January 22, 2024
Patient bradycardic overnight. She was awoken for multiple EKGs. She is somnolent this morning.
Objective Data
-
Labs:
Laboratory Results
01/22/24 01/22/24
08:20 09:10
WBC 5.9
Hgb 10.0 L
Hct 29.0 L
Plt Count 193
HCO3 Pending
Sodium 138
Potassium 3.5
Chloride 110 H
Carbon Dioxide 26
BUN 33 H
Creatinine 3.0 H
Glucose 98
Calcium 8.6
Vital Signs:
Vital Signs
Temp Pulse Resp BP Pulse Ox
98.5 F 75 20 174/66 98
01/22/24 07:50 01/22/24 03:33 01/22/24 07:50 01/22/24 08:24 01/22/24 07:50
I&O
01/21/24 01/22/24 01/23/24
06:59 06:59 06:59
Intake Total 1120 / 1120 960 / 960 480 / 480
Output Total 500 / 500
Balance 620 / 620 960 / 960 480 / 480
[2024-01-22] MEDS: COREG PO (09:48)
[2024-01-22 10:13] LABS: B.E. 4.4 mmol/L; HCO3 29.2 mmol/L (21-28); PCO2 44 mmHg (32-35); pH 7.43 (7.35-7.45)
[2024-01-22 10:15] LABS: O2 Therapy RA
[2024-01-22 10:16] LABS: PO2 56 mmHg (83-108)
[2024-01-22 12:17] LABS: Glucose - Point of Care 93 mg/dl (70-99)
--- NOTE | 2024-01-22 12:47 | W.PN.NEPH.PH ---
Today's Communication / Plan
-
coreg
Assessment/Plan
-
Assessment
Hypertensive urgency
Acute kidney injury
History of stroke
Hyperlipidemia
Elevated troponin
Diabetes mellitus type 2
Plan
nifedipine ER 30mg BID, coreg 12.5 mg BID
Secondary hypertensive workup is negative
follow BMP
old labs indicate Cr 2.3 recently, with U Microalb/Cr 5000. She has seen nephrology at [facility] recently and is in the process of doing the CKD w/u as an outpatient.
dc planning
-
-
Date of Service: January 22, 2024
CC / HPI / ROS
-
Chief Complaint:
NANCY
History of Present Illness:
NANCY/Cr stable at 3
BP high but stable
hgb stable
Review of Systems:
no CP/SOB
Labs
-
Labs:
WBC 5.9 10^3/uL (4.8-10.8) 01/22/24 08:20
RBC 3.13 10^6/uL (4.20-5.40) L 01/22/24 08:20
Hgb 10.0 g/dL (12.0-16.0) L 01/22/24 08:20
Hct 29.0 % (37.0-47.0) L 01/22/24 08:20
Plt Count 193 10^3/uL (130-400) 01/22/24 08:20
Sodium 138 mmol/L (135-145) 01/22/24 08:20
Potassium 3.5 mmol/L (3.5-5.1) 01/22/24 08:20
Chloride 110 mmol/L (98-107) H 01/22/24 08:20
Carbon Dioxide 26 mmol/L (22-30) 01/22/24 08:20
BUN 33 mg/dl (7-17) H 01/22/24 08:20
Creatinine 3.0 mg/dL (0.6-1.0) H 01/22/24 08:20
eGFR 15.62 01/22/24 08:20
Glucose 98 mg/dl (70-99) 01/22/24 08:20
Calcium 8.6 mg/dl (8.4-10.2) 01/22/24 08:20
Phosphorus 3.5 mg/dl (2.5-4.5) 01/21/24 08:15
Albumin 2.9 g/dl (3.5-5.0) L 01/19/24 04:59
Physical Exam
-
Vital Signs:
Vital Signs
Temp Pulse Resp BP Pulse Ox
98.5 F 75 20 174/66 98
01/22/24 07:50 01/22/24 03:33 01/22/24 07:50 01/22/24 08:24 01/22/24 07:50
[2024-01-22] MEDS: VITAMIN D3 (cholecalciferol) PO (13:08)
[2024-01-22] MEDS: LEXAPRO PO (13:08)
--- NOTE | 2024-01-22 15:06 | CM ---
Patient seen bedside.
PT recommending home care.
patient unable to decide on VN.
CM placed call to spouse, patient had [facility] VN int he past.
Referral placed.
Plan: home with VN when stable.
[2024-01-22] MEDS: PEPCID 10 MG PO (16:34)
[2024-01-22 16:39] LABS: Glucose - Point of Care 127 mg/dl (70-99)
[2024-01-22 21:22] LABS: Glucose - Point of Care 204 mg/dl (70-99)
[2024-01-22] MEDS: LANTUS 0.280000000000000027 UNITS SC (22:25)
[2024-01-22] MEDS: LIPITOR 80 MG PO (22:26)
[2024-01-22] MEDS: NEURONTIN 300 MG PO (22:26)
--- NOTE | 2024-01-22 23:00 | PTCARENOTE ---
pt placed on 2 L of O2 to help w/ apenic episodes. pt SpO2=99&
[2024-01-23 03:00] VITALS: BP 145/53
--- NOTE | 2024-01-23 04:08 | PTCARENOTE ---
pt on tele monitor - 1AVB. however while on tele had HR=30's w/ pauses. then tele said afib- no doc hx. ekg completed SR SINUS RHYTHM WITH 2ND DEGREE A-V BLOCK (MOBITZ I). KM=962/53 p=77. informed PATCHER BOWLING BALL Nydia Aguiar.
[2024-01-23 06:00] VITALS: BMI 31.9
[2024-01-23 07:30] VITALS: BP 110/75
[2024-01-23 07:53] LABS: Glucose - Point of Care 68 mg/dl (70-99)
[2024-01-23] MEDS: VITAMIN D3 (cholecalciferol) 25 MCG PO (08:08)
[2024-01-23] MEDS: ZETIA 10 MG PO (08:08)
[2024-01-23] MEDS: HEPARIN 5000 UNITS SC (08:08)
[2024-01-23] MEDS: PLAVIX 75 MG PO (08:08)
[2024-01-23] MEDS: PROCARDIA XL (EXTENDED RELEASE) 30 MG PO (08:09)
[2024-01-23 08:25] LABS: Glucose - Point of Care 93 mg/dl (70-99)
[2024-01-23 08:54] LABS: Hematocrit 28.3 % (37.0-47.0); Hemoglobin 9.8 g/dL (12.0-16.0); Mean Corp Hgb Conc. 34.6 g/dL (33.0-37.0); Mean Corpuscular Hgb 31.8 pg (27.0-31.0); Mean Corpuscular Volume 91.9 fL (81.0-99.0); Mean Platelet Volume 10.9 fL (7.4-10.4); Platelet Count 206 10^3/uL (130-400); Red Blood Cell Count 3.08 10^6/uL (4.20-5.40); Red Cell Dist. Width 12.8 % (11.5-14.5); White Blood Cell Count 7.6 10^3/uL (4.8-10.8)
[2024-01-23 09:01] LABS: Blood Urea Nitrogen 37 mg/dl (7-17); Calcium 8.6 mg/dl (8.4-10.2); Carbon Dioxide 26 mmol/L (22-30); Chloride 108 mmol/L (98-107); Estimated Creatinine Clearance 16 ml/min; Glucose 75 mg/dl (70-99); Potassium 3.4 mmol/L (3.5-5.1); Sodium 139 mmol/L (135-145); eGFR 15.62
[2024-01-23 09:04] VITALS: BP 112/74; BP 115/68; PULSE 78; PULSE 94
[2024-01-23] MEDS: NOVOLOG FLEXPEN-LOW RESISTANCE SC (09:06)
--- NOTE | 2024-01-23 09:06 | W.PN.CD ---
Addendum entered and electronically signed by Waylon Curran MD 01/23/24 11:42:
I saw and examined the patient.
The PLANT ASSOCIATE's note was reviewed and I agree with the note.
Comment: Agree with stopping Coreg. In general asymptomatic AV Wenckebach should be well tolerated and pacemaker therapy will not be needed. Most of her bradys were nocturnal or radiologic technologist mammogram.
Cardiology will sign off.
Original Note:
Today's Communication / Plan
-
Permanently discontinue carvedilol
Impression / Plan
-
Hypertensive emergency - resolved
-Continue Procardia
-Secondary hypertensive workup is negative
-Patient may have labile BP's (with autonomic dysfunction) s/p stroke, so monitor closely
Bradycardia
-Mobitz I on EKG
-Coreg stopped (last dose 01/21/24 at 19:30)
Abnormal troponin, non-ischemic myocardial injury in setting of NANCY, elevated BP
NANCY on CKD, Nephrology following
Type II DM, Hgba1c 6.6%
Hx CAD s/p CABG, denies CP
Hx CVA, on Plavix and statin
Physical Exam
Vital Signs/Labs
Vital Signs
Temp Pulse Resp BP Pulse Ox
98.2 F 77 18 110/75 99
01/23/24 07:30 01/23/24 08:09 01/23/24 07:30 01/23/24 08:09 01/23/24 07:30
01/22/24 01/23/24 01/24/24
06:59 06:59 06:59
Actual Weight 80.785 kg 81.675 kg
01/23/24 08:10
PT 14.4 Sec (11.4-14.6) 01/18/24 15:14
INR 1.12 01/18/24 15:14
APTT 26.2 Sec (23.4-35.0) 01/18/24 15:14
Magnesium 1.7 mg/dl (1.6-2.3) 01/22/24 08:20
TSH 3.03 uIU/ml (0.47-4.68) 01/20/24 03:07
Physical Exam
Constitutional: No acute distress and Comfortable
EENT: Anicteric and Moist mucous membranes
Cardiovascular: Rhythm & rate is regular, Pedal edema is absent, S1S2 is normal and Murmur/rub/gallop absent
Respiratory: Respiratory effort normal and Lungs clear to auscul.
GI: Soft, Distention absent, Flat, Non tender and Normal bowel sounds
Neuro/Psych: AO x 3
Other: Skin (warm and dry)
Data Reviewed
-
Date of Service: January 23, 2024
[2024-01-23 11:30] VITALS: BP 150/60
[2024-01-23 11:55] LABS: Glucose - Point of Care 181 mg/dl (70-99)
[2024-01-23] MEDS: NOVOLOG FLEXPEN-LOW RESISTANCE 1 UNITS SC (12:19)
[2024-01-23] MEDS: LEXAPRO 10 MG PO (12:19)
--- NOTE | 2024-01-23 12:51 | CM ---
MD entered order for discharge.
Spoke with patient and .
Pt ready for discharge today. IMM reviewed with her and she said she agrees with dc.
She requested [facility] As per care port pt accepted, Spoke with Emilia from [facility] she is aware of referral and that she is dc today.
Spoke with he will drive her home.
PLAN Home with [facility] fax [phone]
[2024-01-23 12:58] LABS: 24 Hour Urine Total Volume Random mL; Creatinine, Urine per Volume 127 mg/dL; Metanephrine, Urine 155 ug/L; Metanephrine/Creatinine Ratio 122 ug/g CRT (0-300); Normetanephrine, Urine 425 ug/L; Normetanephrine/Creatinine Rat 335 ug/g CRT (0-400); Urine Collection Length Random hr
[2024-01-23 15:00] VITALS: BP 172/69
--- NOTE | 2024-01-23 17:49 | W.PN.HOSP.TC ---
Today's Communication/Plan
-
discharge home
Assessment / Plan
Assessment / Plan
# Hypertensive urgency/emergency due to NANCY
required to be monitored in ICU.
Blood pressure improved with increasing nifedipine from 30 mg daily to 30 mg twice a day
Discontinue Coreg going on due to nocturnal bradycardia
Secondary hypertensive workup is negative
# Mobitz I block
Cardiology evaluated. Recommended to discontinue further Coreg dose. No pacemaker indication
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
Creatinine 3.0 today, per nephrology her baseline is about 2.3
Patient need to follow-up with primary information technology professor and continue CKD workup
#Hypersomnolence on 01/21 -resolved
Nursing staff reports patient did not sleep overnight since she was constantly awoken for repeat EKGs due to bradycardia
ABG shows mild hypercapnia with a pCO2 of 44, she is compensated with a pH 7.43
Will let her nap this morning, monitor mental status
If she continues to be hypersomnolent, will order head CT this evening
#Weakness
PT/OT - rec HH
# Non-[place] troponin elevation secondary to demand ischemia from hypertension versus rule out NSTEMI
# History of CAD status post CABG
Seen by cardiology, who suspect nonischemic myocardial injury in the setting of NANCY, elevated BNP
Cardiology has signed off
# Hypokalemia
Repleted and resolved
# Fall with injury
Head CT negative for acute intracranial abnormalities, hip x-ray negative for acute fracture or dislocation
History of arrhythmia unknown type as per records
Prior CVA with residual expressive aphasia/right-sided weakness
-Continue Plavix
Type 2 diabetes
-Continue Lantus, sliding scale insulin, diabetic diet
Anxiety/depression
-Continue Lexapro
Hyperlipidemia
-Continue statin, Zetia
Chronic anemia
-Hemoglobin stable
History of kidney stones
DVT prophylaxis�subcu heparin
Full code
Patient spouse updated over the phone
More than 30 minutes spent in discharge including
Final examination of the patient
Summarizing hospital stay
Instructions for continuing care to all relevant caregivers
Preparation of discharge records, prescriptions, and referral forms
Total time spent (in minutes): 39 mins
Anticipated Discharge: Today
Subjective/Interval History
-
Date of Service: January 23, 2024
Resting comfortably in chair
Mentation clear
Denies of episode of dizziness/palpitation
Objective Data
-
Labs:
Laboratory Results
01/23/24
08:10
WBC 7.6
Hgb 9.8 L
Hct 28.3 L
Plt Count 206
Sodium 139
Potassium 3.4 L
Chloride 108 H
Carbon Dioxide 26
BUN 37 H
Creatinine 3.0 H
Glucose 75
Calcium 8.6
Vital Signs:
Vital Signs
Temp Pulse Resp BP Pulse Ox
97.9 F 69 19 172/69 97
01/23/24 15:00 01/23/24 15:00 01/23/24 15:00 01/23/24 15:00 01/23/24 15:00
I&O
01/22/24 01/23/24 01/24/24
06:59 06:59 06:59
Intake Total 960 / 960 980 / 980 480 / 480
Balance 960 / 960 980 / 980 480 / 480
Review of Systems
-
Respiratory: Reports No Symptoms
Cardiac: Reports No Symptoms
Abdomen/GI: Reports No Symptoms
Physical Exam
-
General: No Apparent Distress and Comfortable
HEENT: Negative Oxygen
Respiratory: Clear to Auscultation
Cardiac: Regular Rhythm and S1/S2; Negative Murmur or Rub
GI: Soft, Nontender and Nondistended
Musculoskeletal: No Edema
Neuro: Awake, Alert, Oriented, No Motor Deficits and Nonfocal/Grossly Intact
Psych: Calm
--- NOTE | 2024-01-24 07:29 | W.DCSUMMARY ---
Discharge Summary
Discharge Data
Date of Admission: 01/18/24
Date of Discharge: 01/23/24
-
Pending Results: No
Hospital Course
Discharging Physician : Dr Edi Son
Disposition : To home
Primary care physician : Dr Anson Bauman
Principal Discharge diagnosis :
Hypertensive emergency
Acute kidney injury chronic kidney disease stage IIIa
Mobitz type I block
Electrolyte imbalance
None myocardial infarction troponin elevation
Chronic Discharge diagnosis :
History of stroke
Type 2 diabetes mellitus
Anxiety/depression
Hyperlipidemia
Chronic anemia
Hospital Course :
Patient is a 78-year-old female with a past medical history came to ER after having episode of dizziness and near syncope at home. Patient was brought into ER for further evaluation and was noted to be in hypertensive crisis with systolic blood
pressure in the 230s. CT head was negative for any acute abnormality. Patient was required to be started on Cardene drip and was admitted to ICU for further monitoring. Cardiology was involved in care for further help. Patient had an
echocardiogram which showed preserved ejection fraction with left ventricular hypertrophy. After improvement in blood pressure patient was resumed back on home dose of Coreg. Patient was noted to having second-degree type I block and cardiology
recommended for changing Coreg to Procardia. Patient had good blood pressure control with adjusted dose of Procardia.
Patient have acute kidney injury with elevated creatinine of 3 at ER presentation. Nephrology was following along. After improvement of blood pressure patient renal function normalized to baseline. Nephrology recommended for patient to continue
outpatient workup with primary nephrology.
Important imaging findings :
None
Procedure findings :
None
Discharge Plan
-
Patient Disposition: Home with Home Care
Discharge Diagnosis/Procedures: HTN urgency, Bradycardia from medication
Condition: Fair
Diet: 2 Gram Sodium
Activity: As tolerated
Driving Restrictions: No driving for 24 hours
Bathing Restrictions: OK to Shower
Other Services: VN and PT
Referrals:
Anson Bauman MD [Family Provider] - in one week
Eddie España MD [Non-Admitting Privileges] - in three to four weeks
Prescriptions:
New
nifedipine 30 mg Tablet Extended Release
30 mg PO BID Qty: 60 2RF
Continued
famotidine 20 MG tablet
10 mg PO QPM
escitalopram oxalate 20 MG tablet
10 mg PO NOON
ezetimibe 10 MG tablet
10 mg PO DAILY
atorvastatin 80 mg Tablet
80 mg PO HS
sennosides [senna] 8.6 mg Tablet
8.6 mg PO DAILY PRN (Reason: constipation)
clopidogrel 75 mg Tablet
75 mg PO DAILY
acetaminophen 650 mg Tablet Extended Release
1,300 mg PO BIDPRN PRN (Reason: mild pain)
docusate sodium [Stool Softener] 100 mg Capsule
200 mg PO DAILY PRN (Reason: constipation)
gabapentin 300 mg Capsule
300 mg PO HS
insulin lispro [Humalog KwikPen Insulin] 100 unit/mL Insulin Pen
0 sliding scale dose SC DIRECTED
Rx Instructions:
01/18/2024, if BS 100-149 = 5 units; 150-200 = 6 units; 201-250 = 7 units; 250-300 = 8 units.
cholecalciferol (vitamin D3) 25 mcg (1,000 unit) Tablet
25 mcg PO DAILY
insulin glargine [Lantus Solostar U-100 Insulin] 100 unit/mL (3 mL) Insulin Pen
28 - 32 unit SC HS
Patient Comments:
01/18/2024, per spouse, pt. uses between 28-32 units HS and if her BS is below 150, she will skip dose altogether.
Generic Cold Medicine Am
1 cap PO DAILYPRN PRN (Reason: congestion)
Patient Comments:
01/18/2024, purchased at [facility] and spouse does not know name or strength.
Generic Cold Medicine Pm
2 cap PO HSPRN PRN (Reason: congestion)
Patient Comments:
01/18/2024, purchased at [facility] and spouse does not know name or strength.
Discontinued
carvedilol 12.5 mg Tablet
12.5 mg PO BID
Discharge Orders:
Discharge Patient (As Directed); Ordered 01/23/24
Ordered By: Edi Son
Discharge Date and Time
Discharge Date/Time: 01/23/24 16:18
[2024-01-24 18:17] LABS: Cryoglobulin NEG 72Hour (NEG 72Hour)
== END 2024-01-23 16:18 | disposition home health service (06) | DRG 682 ==
LOC: 4 WEST ACU 13:16
PROVIDERS: Family Medicine; Internal Medicine; Nurse Practitioner Family; Physician Assistant; ADMITTING PHYSICIAN Hospitalist; ATTENDING PHYSICIAN Hospitalist; CONSULT PHYSICIAN Internal Medicine Cardiovascular Disease; CONSULT PHYSICIAN Internal Medicine Critical Care Medicine; CONSULT PHYSICIAN Specialist; EMERGENCY PHYSICIAN Emergency Medicine; FAMILY PHYSICIAN Internal Medicine
DX: N17.9 Acute kidney failure, unspecified (principal); I21.A1 Myocardial infarction type 2; I16.1 Hypertensive emergency; I12.9 Hypertensive chronic kidney disease with stage 1 through stage 4 chronic kidney disease, or unspecified chronic kidney disease; E11.22 Type 2 diabetes mellitus with diabetic chronic kidney disease; N18.31 Chronic kidney disease, stage 3a; F41.9 Anxiety disorder, unspecified; F32.A Depression, unspecified; E78.00 Pure hypercholesterolemia, unspecified; D64.9 Anemia, unspecified; I44.1 Atrioventricular block, second degree; I25.10 Atherosclerotic heart disease of native coronary artery without angina pectoris; E87.6 Hypokalemia; I69.320 Aphasia following cerebral infarction; Z79.4 Long term (current) use of insulin; Z79.84 Long term (current) use of oral hypoglycemic drugs; Z95.1 Presence of aortocoronary bypass graft; Z79.02 Long term (current) use of antithrombotics/antiplatelets
CPT/HCPCS: 36600; 51701; 51798; 70450; 71045; 73502; 80048; 80053; 80306; 81003; 81015; 82088; 82595; 82805; 82947; 82962; 83036; 83516; 83735; 83835; 84100; 84244; 84443; 84484; 85025; 85027; 85610; 85730; 87077; 87086; 87186; 87811; 93005; 93306; 93975; 96365; 96366; 97162; 97166; 99285

== ENCOUNTER 2024-11-06 22:25 | Inpatient (IN) | payer MEDICARE, SELFPAY ==
[2024-11-06 16:50] VITALS: BMI 26.9
--- NOTE | 2024-11-06 16:52 | ED.GENMED ---
ED Provider Triage
<Yasir Goins Jr., PA-C - Last Filed: 11/06/24 17:01>
-
Patient seen by provider in Triage?: Seen in Triage
Attestation: A medical screening examination has been initiated by a qualified medical provider. Based on the assessment performed at this time, it has been determined that an emergent medical condition may exist and the patient has been informed
that further medical evaluation and possible additional diagnostic testing may be needed.
HPI: 78-year-old female presenting with concerns of dialysis access to the right arm blocked, right AC graft. Clotted while at dialysis today unable to get dialysis today. No additional symptoms. Will need additional consultation for access
complication.
GENERAL: Alert , in no apparent distress
EYE: No visual abnormalities.
NECK: Trachea midline
ENT: No visible abnormalities.
LUNGS: No acute respiratory distress
NEUROLOGICAL: Alert and oriented
SKIN: Skin intact. No visible changes.
MUSCULOSKELETAL: Moving extremities normally
PSYCH: Normal and appropriate interaction.
This is a medical evaluation conducted in person to initiate diagnostic evaluation and provide initial therapeutics. Please see further documentation by the treating clinician.
History of Present Illness
<Yasir Goins Jr., PA-C - Last Filed: 11/06/24 17:01>
General
Chief Complaint: Catheter/Tube Problem
Time Seen by Provider: 11/06/24 19:50
<Jeramy Haddad DO - Last Filed: 11/06/24 20:20>
General
Source: patient
Exam Limitations: none
Nursing documentation reviewed up to this point in time: agreed with
History of Present Illness
History of Present Illness:
78-year-old female ESRD Tuesday clotted fistula last week declotted at [place], had a few sessions of dialysis, went to dialysis today unable to use her fistula sent here placed 4 months ago at [place]
Past History
<Yasir Goins Jr., PA-C - Last Filed: 11/06/24 17:01>
Past History
ED Past Medical History: Arrthythmia, CAD, HTN, Hypercholesterolemia and NIDDM
ED Past Surgical History: Appendectomy, Cardiac (cabg) and Cholecystectomy
Social History
Tobacco: Non-smoker
Drug: None
Personal:
Review of Systems
<Jeramy Haddad DO - Last Filed: 11/06/24 20:20>
Review of Systems
All Other Systems: Not applicable
Phy Exam
<Jeramy Haddad DO - Last Filed: 11/06/24 20:20>
Physical Exam
Physical Exam:
Physical Exam
General: no apparent distress, not acutely ill
Neck: No jaundice
Heart: s1/s2 regular rate and rhythm, no murmur. equal radial pulses.
Lungs: no acute respiratory distress. clear bilaterally
Neuro: alert and oriented. no focal neurological deficits
Skin: no rash
Psychiatric: well kept.
Extremities: Right upper extremity with no thrill no tender
Course
<Yasir Goins Jr., PA-C - Last Filed: 11/06/24 17:01>
Orders/Labs/Results
Orders:
Orders
11/06/24 17:12
CBC/With Diff [Complete Blood Count/With Diff] Urgent
CMP [Comprehensive Metabolic Panel] Urgent
11/06/24 20:15
Electrocardiogram (*1) Urgent
Reason for Study: Palpitations
EKG- Treatment ONCE
CR Chest - 2 Views Urgent
Comment:
Reason For Exam: esrd
Abnormal Lab Results
11/06/24
17:12
RBC 3.11 L 10^6/uL
(4.20-5.40)
Hgb 9.8 L g/dL
(12.0-16.0)
Hct 30.4 L %
(37.0-47.0)
MCH 31.5 H pg
(27.0-31.0)
MCHC 32.2 L g/dL
(33.0-37.0)
Monocytes % 9.4 H %
(1.7-9.3)
BUN 53 H mg/dl
(7-17)
Creatinine 4.6 H* mg/dL
(0.6-1.0)
Glucose 119 H mg/dl
(70-99)
Total Protein 6.2 L g/dl
(6.3-8.2)
11/06/24 17:12
11/06/24 17:12
Vital Signs
Initial and Last Documented VS:
Initial Vital Signs
Temp Pulse Resp BP Pulse Ox
98.2 F 74 18 174/76 100
11/06/24 16:53 11/06/24 16:53 11/06/24 16:53 11/06/24 16:53 11/06/24 16:53
Last Documented Vital Signs
Temp Pulse Resp BP Pulse Ox
97.8 F 63 11 177/63 96
11/06/24 19:40 11/06/24 19:37 11/06/24 19:37 11/06/24 19:30 11/06/24 19:42
Gitalt;Jeramy Haddad, DO - Last Filed: 11/06/24 20:20>
Orders/Labs/Results
Orders:
Orders
11/06/24 17:12
CBC/With Diff [Complete Blood Count/With Diff] Urgent
CMP [Comprehensive Metabolic Panel] Urgent
11/06/24 20:15
Electrocardiogram (*1) Urgent
Reason for Study: Palpitations
EKG- Treatment ONCE
CR Chest - 2 Views Urgent
Comment:
Reason For Exam: esrd
Abnormal Lab Results
11/06/24
17:12
RBC 3.11 L 10^6/uL
(4.20-5.40)
Hgb 9.8 L g/dL
(12.0-16.0)
Hct 30.4 L %
(37.0-47.0)
MCH 31.5 H pg
(27.0-31.0)
MCHC 32.2 L g/dL
(33.0-37.0)
Monocytes % 9.4 H %
(1.7-9.3)
BUN 53 H mg/dl
(7-17)
Creatinine 4.6 H* mg/dL
(0.6-1.0)
Glucose 119 H mg/dl
(70-99)
Total Protein 6.2 L g/dl
(6.3-8.2)
11/06/24 17:12
11/06/24 17:12
Vital Signs
Initial and Last Documented VS:
Initial Vital Signs
Temp Pulse Resp BP Pulse Ox
98.2 F 74 18 174/76 100
11/06/24 16:53 11/06/24 16:53 11/06/24 16:53 11/06/24 16:53 11/06/24 16:53
Last Documented Vital Signs
Temp Pulse Resp BP Pulse Ox
97.8 F 63 11 177/63 96
11/06/24 19:40 11/06/24 19:37 11/06/24 19:37 11/06/24 19:30 11/06/24 19:42
Gitalt;Jeramy Haddad, DO - Last Filed: 11/06/24 20:20>
MDM/Problems Addressed
Differential Diagnosis Includes:
Malfunctioning fistula
MDM/Problems Addressed:
Malfunctioning fistula
Chronic conditions affecting care:
ESRD
Acute Exacerbation and/or Progression of Chronic Illness:
ESRD
<Jeramy Haddad DO - Last Filed: 11/06/24 20:20>
*Critical Care Note
Total Time (30-74mins, 75-104mins- exclusive of procedures): Not Applicable
<Jeramy Haddad DO - Last Filed: 11/06/24 20:20>
Update Note
Update Note:
Labs are noted no apparent urgent HD need, message sent to [facility] nephrology
Date reviewed with vascular surgery no urgent indication for ultrasound fistulogram tomorrow message sent to hospitalist
ED Attending Note
<Yasir Goins Jr., PA-C - Last Filed: 11/06/24 17:01>
-
Portions of this chart may have been created with voice recognition software.� Occasional wrong word or��sound alike� substitutions may have occurred due to the inherent limitations of voice recognition software.
Discharge Plan
Departure
Patient Disposition: Admit
Date of Disposition: 11/06/24
Time of Disposition: 20:19
Admit to: Med/Surg
Presentation/result/management discussed w/ accepting MD/DO: Hospitalist
Patient with high blood pressure during this ER visit?: Yes
Condition: Good
Discharge Problem:
History of CVA (cerebrovascular accident), Clotted AV fistula
Prescriptions:
No Action
famotidine 20 MG tablet
10 mg PO QPM
escitalopram oxalate 20 MG tablet
10 mg PO NOON
ezetimibe 10 MG tablet
10 mg PO DAILY
atorvastatin 80 mg Tablet
80 mg PO HS
sennosides [senna] 8.6 mg Tablet
8.6 mg PO DAILY PRN (Reason: constipation)
clopidogrel 75 mg Tablet
75 mg PO DAILY
acetaminophen 650 mg Tablet Extended Release
1,300 mg PO BIDPRN PRN (Reason: mild pain)
docusate sodium [Stool Softener] 100 mg Capsule
200 mg PO DAILY PRN (Reason: constipation)
gabapentin 300 mg Capsule
300 mg PO HS
insulin lispro [Humalog KwikPen Insulin] 100 unit/mL Insulin Pen
0 sliding scale dose SC DIRECTED
Rx Instructions:
01/18/2024, if BS 100-149 = 5 units; 150-200 = 6 units; 201-250 = 7 units; 250-300 = 8 units.
cholecalciferol (vitamin D3) 25 mcg (1,000 unit) Tablet
25 mcg PO DAILY
insulin glargine [Lantus Solostar U-100 Insulin] 100 unit/mL (3 mL) Insulin Pen
28 - 32 unit SC HS
Patient Comments:
01/18/2024, per spouse, pt. uses between 28-32 units HS and if her BS is below 150, she will skip dose altogether.
Generic Cold Medicine Am
1 cap PO DAILYPRN PRN (Reason: congestion)
Patient Comments:
01/18/2024, purchased at [facility] and spouse does not know name or strength.
Generic Cold Medicine Pm
2 cap PO HSPRN PRN (Reason: congestion)
Patient Comments:
01/18/2024, purchased at [facility] and spouse does not know name or strength.
nifedipine 30 mg Tablet Extended Release
30 mg PO BID Qty: 60 2RF
Referrals:
Anson Bauman MD [Family Provider] -
Interventions
Interventions:
*Risk Screen - Suicide Last Done: 11/06/24 16:53
*General Assessment Last Done: 11/06/24 16:53
*Neglect/Abuse Screening Last Done: 11/06/24 16:53
ED- Fall Risk Assessment Last Done: 11/06/24 19:44
*ED COVID-19 Vaccine History Last Done: 11/06/24 16:53
VF-Svuoyq-Hohhdzeytl Assessment Last Done: 11/06/24 19:42
ED-Female Genitourinary Assessment Last Done: 11/06/24 19:42
Discharge Date and Time
Print Language: LITHUANIAN
[2024-11-06 16:53] VITALS: BP 174/76
[2024-11-06 17:17] LABS: % Basophils 1.2 % (0-2); % Eosinophils 2.9 % (0-6); % Immature Granulocytes 0.2 % (0-0.5); % Lymphocytes 25.8 % (20.5-51.1); % Monocytes 9.4 % (1.7-9.3); % Neutrophils 60.5 % (42.2-75.2); Absolute Basophils 0.1 10^3/uL (0-0.2); Absolute Eosinophils 0.2 10^3/uL (0-0.7); Absolute Lymphocytes 1.7 10^3/uL (1.2-3.4); Absolute Monocytes 0.6 10^3/uL (0.1-0.6); Hematocrit 30.4 % (37.0-47.0); Hemoglobin 9.8 g/dL (12.0-16.0); Mean Corp Hgb Conc. 32.2 g/dL (33.0-37.0); Mean Corpuscular Hgb 31.5 pg (27.0-31.0); Mean Corpuscular Volume 97.7 fL (81.0-99.0); Mean Platelet Volume 9.7 fL (7.4-10.4); Nucleated Red Blood Cells % 0 %; Platelet Count 253 10^3/uL (130-400); Red Blood Cell Count 3.11 10^6/uL (4.20-5.40); Red Cell Dist. Width 13.3 % (11.5-14.5); White Blood Cell Count 6.6 10^3/uL (4.8-10.8)
[2024-11-06 17:56] LABS: ALT (SGPT) 15 U/L (0-35); AST (SGOT) 20 U/L (14-36); Alkaline Phosphatase 64 U/L (38-126); Blood Urea Nitrogen 53 mg/dl (7-17); Calcium 9.3 mg/dl (8.4-10.2); Carbon Dioxide 26 mmol/L (22-30); Chloride 103 mmol/L (98-107); Glucose 119 mg/dl (70-99); Potassium 4.8 mmol/L (3.5-5.1); Sodium 140 mmol/L (135-145); Total Bilirubin 0.3 mg/dl (0.2-1.3); Total Protein 6.2 g/dl (6.3-8.2); eGFR 9.35
[2024-11-06 19:30] VITALS: BP 177/63
[2024-11-06 20:00] VITALS: BP 186/62
[2024-11-06 21:00] VITALS: BP 184/62
[2024-11-06 22:00] VITALS: BP 174/59
--- NOTE | 2024-11-06 22:10 | HPS.HSE ---
Family Physician
-
Family Physician: Anson Bauman MD
Chief Complaint
-
AVG Malfunction
History of Present Illness
Patient is a 78y F with PMH significant for ESRD, ASCVD and DM-II who presents to ED for evaluation of AVG malfunction. Patient states that she had her initial RUE AVG placed at [place] about 4 months ago. She started HD shortly thereafter and
has only used this graft for access. Last week, patient underwent graft study (Tuesday) due to poor flows. Function improved following this and patient received HD on and Tuesday without issue. She presented for her scheduled HD today
and it was noted that her graft was completely non-functioning. Patient was referred to the ED for further evaluation.
Patient states that she feels well.
She has no current complaints or concerns. No cough, fevers / chills, dyspnea, chest pain, etc.
Medical History
Past Medical History
Past Medical History: Reports Other
Additional Past Medical History:
ASCVD (CAD / Prior CVA)
Hypertension
DM-II
ESRD on HD (4 months)
Anxiety
Anemia of CKD
Past Surgical History: Reports Other
Additional Past Surgical History:
RUE AVG (4 months ago)
CABG x 4
Appendectomy
Hysterectomy
Cholecystectomy
Social History
Tobacco: Non-smoker
Alcohol: Occasional (Rare)
Drug: None
Family History
Family History: Not pertinent
Allergies / Home Medications
Allergies reflects when Allergies were last updated in [facility].
Home Medications with original date entered in [facility]
Allergy/Medication List:
Allergies
Allergy/AdvReac Type Severity Reaction Status Date / Time
Cephalosporins Allergy Rash Verified 11/06/24 16:56
penicillin G Allergy Rash Verified 11/06/24 16:56
Penicillins Allergy Rash Verified 11/06/24 16:56
Home Medications
escitalopram oxalate 20 mg tablet 20 mg PO DAILY Mental Health 04/15/16
ezetimibe 10 mg tablet 10 mg PO DAILY High Cholesterol 04/15/16
famotidine 20 mg tablet 20 mg PO DAILY Gastrointestinal Issue 04/15/16
acetaminophen 650 mg tablet,extended release 1,300 mg PO BIDPRN PRN mild pain 01/18/24
cholecalciferol (vitamin D3) 25 mcg (1,000 unit) tablet 25 mcg PO DAILY Supplement 01/18/24
clopidogrel 75 mg tablet 75 mg PO DAILY Blood Clot Prevention/Tx 01/18/24
docusate sodium 100 mg capsule (Stool Softener) 100 mg PO DAILYPRN PRN constipation 01/18/24
insulin glargine 100 unit/mL (3 mL) subcutaneous pen (Lantus Solostar U-100 Insulin) 28 - 32 unit SC HS Diabetes 01/18/24
insulin lispro 100 unit/mL subcutaneous pen (Humalog KwikPen (U-100) Insulin) 0 sliding scale dose SC MEALS Diabetes 01/18/24
sennosides 8.6 mg tablet (senna) 8.6 mg PO DAILYPRN PRN constipation 01/18/24
nifedipine 30 mg tablet,extended release 30 mg PO BID HTN #60 tabs 01/23/24
atorvastatin 40 mg tablet 20 mg PO HS 11/06/24
buspirone 5 mg tablet 5 mg PO DAILY 11/06/24
gabapentin 100 mg capsule 100 mg PO BID 11/06/24
valsartan 80 mg tablet 80 mg PO HS 11/06/24
vitamin B complex-vitamin C 100 mg-folic acid 1 mg tablet (Dialyvite) 1 tab PO DAILY 11/06/24
Review of Systems
-
History Source: Patient
A 12 point ROS was completed and negative except as noted: Yes
Constitutional: Denies Fever or Chills
Respiratory: Denies Trouble Breathing
Cardiac: Denies Chest Pain or Palpitations
Abdomen/GI: Denies Abdominal Pain, Nausea, Vomiting or Diarrhea
Musculoskeletal: Denies Joint Pain or Edema
Neurological: Denies Dizzy or Headache
Psych: Denies Depression or Anxiety
Physical Exam
Vital Signs
Vital Signs
Temp Pulse Resp BP Pulse Ox
97.8 F 62 14 174/59 96
11/06/24 19:40 11/06/24 22:00 11/06/24 22:00 11/06/24 22:00 11/06/24 19:42
Physical Exam
General: Other (78y F in no acute distress.)
HEENT: Moist mucous membranes and PERRLA
Respiratory: Clear; No Wheezes, Rales or Rhonchi
Cardiac: S1/S2, Regular Rhythm and Murmur (II/ GREG)
GI: Soft, Non Tender, Non Distended and Normal Bowel Sounds
Musculoskeletal: No Clubbing, No Cyanosis and No Edema
Neuro: AO x 3
Hematologic/Lymphatic: Other (RUE AV Graft without palpable thrill or audible bruit.)
Laboratory Results
-
11/06/24 17:12
11/06/24 17:12
Laboratory Results
Total Bilirubin 0.3 mg/dl (0.2-1.3) 11/06/24 17:12
AST 20 U/L (14-36) 11/06/24 17:12
ALT 15 U/L (0-35) 11/06/24 17:12
Alkaline Phosphatase 64 U/L (38-126) 11/06/24 17:12
Impression/Plan
-
A/P: Patient is a 78y F with PMH significant for ESRD on HD, hypertension and DM-II who presents to ED for evaluation of non-functioning AV graft.
AVG Malfunction
- Admit for further evaluation and treatment.
- Vascular Surgery evaluation in the AM for graft assessment / intervention.
ESRD on HD
- Stable. No acute HD needs.
- Last HD was Tuesday. T-H-Sat schedule @ [place] / [facility].
- Nephrology evaluation for HD needs after graft function is restored.
- Continue current med regimen.
ASCVD
Benign Hypertension
- Stable. No chest pain, dyspnea, etc.
- Continue current CV med regimen including Plavix.
DM-II
- Stable. Continue basal insulin at decreased dose while NPO.
- Follow glucose and cover with SSI as needed.
- Update A1C.
Anxiety / Depression
- Stable. Continue outpatient medications.
DVT Prophylaxis: Subcut Heparin
Code Status: Full
[2024-11-06 23:00] VITALS: BP 166/60
[2024-11-07] VITALS (15 sets, daily range): BP systolic 144–209; BP diastolic 65–99; BMI 26.6
[2024-11-07 02:00] LABS: Glucose - Point of Care 73 mg/dl (70-99)
[2024-11-07 02:43] LABS: PT 13.5 Sec (11.4-14.6)
[2024-11-07 02:44] LABS: APTT 28.2 Sec (23.4-35.0)
[2024-11-07 04:17] LABS: Glucose - Point of Care 140 mg/dl (70-99)
[2024-11-07 07:50] LABS: Glucose - Point of Care 141 mg/dl (70-99)
[2024-11-07 08:14] LABS: Hemoglobin 9.8 g/dL (12.0-16.0); Mean Corp Hgb Conc. 32.7 g/dL (33.0-37.0); Mean Corpuscular Hgb 31.6 pg (27.0-31.0); Mean Corpuscular Volume 96.8 fL (81.0-99.0); Mean Platelet Volume 9.9 fL (7.4-10.4); Platelet Count 253 10^3/uL (130-400); Red Cell Dist. Width 13.3 % (11.5-14.5); White Blood Cell Count 4.8 10^3/uL (4.8-10.8)
[2024-11-07] MEDS: HEPARIN SC (08:33)
[2024-11-07] MEDS: PLAVIX 75 MG PO (08:40)
[2024-11-07] MEDS: PROCARDIA XL (EXTENDED RELEASE) 30 MG PO ×2 (08:40→20:07)
[2024-11-07] MEDS: BUSPAR 5 MG PO (08:40)
[2024-11-07] MEDS: NEURONTIN 100 MG PO ×2 (08:41→20:07)
[2024-11-07] MEDS: LEXAPRO 20 MG PO (08:41)
--- NOTE | 2024-11-07 08:41 | CON.VAS ---
Addendum entered and electronically signed by Valeriy Mosher MD 11/07/24 17:39:
Seen and examined earlier this a.m. with ORQUIDEA Martinez. Agree with findings and plan as discussed and noted below. I discussed fully with patient plan for AV graft thrombectomy. Risk/benefits/alternatives all have been extensively discussed. Discussed
clearly the potential for nonself debility this graft given that it was very recently (within the last week) thrombectomized with recurrent occlusion within a week. She understands all wishes to proceed.
Original Note:
Consultation
Consultation Request
Date/Time Consultation Performed: 11/07/24
Requesting Provider: Hospitalist
Performing Provider: Karie Martinez, ORQUIDEA-C for Valeriy Mosher MD
Reason for Consultation: Right upper extremity AV graft clot
Medical History
-
Chief Complaint: Right upper extremity nonfunctioning HD AV graft
History of Present Illness:
This is a 78-year-old female with significant past medical history for end-stage renal disease on HD [facility]), stroke, diabetes, and CAD, who presented to [facility] on 11/06/2024 from her HD center with reports of suspected clot at AV graft
and inability to have HD. Patient is a bit of a poor historian and does endorse that she has suffered a recent stroke a few weeks ago, thus HPI is contributed by chart review. Patient does endorse that she began to have worsening of her chronic
kidney disease roughly 4 months ago and that was when HD was initiated via her right upper extremity AV graft. She cannot recall surgeon but does endorse that right upper extremity graft was created at [facility]. Roughly a week ago patient
was told she had poor flow volumes, and I suspect at that time she underwent fistulogram or possible declot, and she states since that procedure she was able to continue with dialysis via her right upper extremity AV graft. However, yesterday at HD
they could not access AV graft and no palpable thrill or bruit was auscultated prompting ED evaluation. Patient offers no other complaints states she feels she is at her baseline health.
Past Medical History
Past Medical History: CAD, CVA, HTN, IDDM, Psychiatric (Anxiety) and Other (End-stage renal disease on HD, anemia)
Past Surgical History: Appendectomy, Cardiac (CABG x 4), Cholecystectomy, Gynecological (Hysterectomy) and Other (Right upper extremity AV graft creation)
Social History
Tobacco: Non-Smoker
Alcohol: Occasional
Allergies / Home Medications
Allergy/AdvReac Type Severity Reaction Status Date / Time
Cephalosporins Allergy Rash Verified 11/06/24 16:56
penicillin G Allergy Rash Verified 11/06/24 16:56
Penicillins Allergy Rash Verified 11/06/24 16:56
�Medication �Instructions �Recorded �Confirmed �Type
escitalopram oxalate 20 mg tablet 20 mg PO DAILY Mental Health 04/15/16 11/06/24 History
ezetimibe 10 mg tablet 10 mg PO DAILY High Cholesterol 04/15/16 11/06/24 History
famotidine 20 mg tablet 20 mg PO DAILY Gastrointestinal 04/15/16 11/06/24 History
Issue
acetaminophen 650 mg 1,300 mg PO BIDPRN PRN mild pain 01/18/24 11/06/24 History
tablet,extended release
cholecalciferol (vitamin D3) 25 25 mcg PO DAILY Supplement 01/18/24 11/06/24 History
mcg (1,000 unit) tablet
clopidogrel 75 mg tablet 75 mg PO DAILY Blood Clot 01/18/24 11/06/24 History
Prevention/Tx
docusate sodium 100 mg capsule 100 mg PO DAILYPRN PRN constipation 01/18/24 11/06/24 History
(Stool Softener)
insulin glargine 100 unit/mL (3 28 - 32 unit SC HS Diabetes 01/18/24 11/06/24 History
mL) subcutaneous pen (Lantus
Solostar U-100 Insulin)
insulin lispro 100 unit/mL 0 sliding scale dose SC MEALS 01/18/24 11/06/24 History
subcutaneous pen (Humalog KwikPen Diabetes
(U-100) Insulin)
sennosides 8.6 mg tablet (senna) 8.6 mg PO DAILYPRN PRN constipation 01/18/24 11/06/24 History
nifedipine 30 mg tablet,extended 30 mg PO BID HTN #60 tabs 01/23/24 11/06/24 Rx
release
atorvastatin 40 mg tablet 20 mg PO HS High Cholesterol 11/06/24 11/06/24 History
buspirone 5 mg tablet 5 mg PO DAILY Mental Health/Anxiety 11/06/24 11/06/24 History
gabapentin 100 mg capsule 100 mg PO BID Neurological 11/06/24 11/06/24 History
Condition
valsartan 80 mg tablet 80 mg PO HS Blood Pressure 11/06/24 11/06/24 History
vitamin B complex-vitamin C 100 1 tab PO DAILY Supplement 11/06/24 11/06/24 History
mg-folic acid 1 mg tablet
(Dialyvite)
Review of Systems
-
History Source: Patient
Constitutional: Reports No Symptoms
EENT: Reports No Symptoms
Respiratory: Reports No Symptoms
Cardiac: Reports No Symptoms
Abdomen/GI: Reports No Symptoms
: Reports No Symptoms
Musculoskeletal: Reports Other (Right upper extremity AV graft nonfunctioning unable to have HD session)
Skin: Reports No Symptoms
Neurological: Reports No Symptoms
Endocrine: Reports No Symptoms
Physical Exam
Vital Signs
Temp Pulse Resp BP Pulse Ox
97.8 F 78 14 168/99 99
11/07/24 07:33 11/07/24 07:33 11/07/24 07:33 11/07/24 07:33 11/07/24 07:33
Lab Results
11/07/24 07:16
Physical Exam
General: No Apparent Distress
HEENT: Normocephalic, Anicteric and Atraumatic
Respiratory: Non Labored Respirations
Cardiac: Negative JVD
GI: Soft, Non Tender and Non Distended
Musculoskeletal: No Edema and Other (Right upper extremity AV graft site CDI, mild ecchymosis noted, single stitch CDI, no palpable thrill, right hand warm, motor and sensation intact)
Skin: Warm
Neuro: Awake and Alert
Assessment / Plan
-
Assessment: 78-year-old female with clotted AV graft on HD for end-stage renal disease
Plan:
Will add patient on to OR schedule for today, please keep n.p.o. for AV graft declot and fistulogram
Patient's last HD session was this past Tuesday (11/03/24), if felt that she requires HD sooner she will need temporary catheter placement
Appreciate nephrology recommendations
Patient endorses recent stroke, with residual speech abnormalities, she is unclear if the ultrasound her carotids, for completeness sake we will obtain carotid artery duplex
Patient seen and examined with attending Dr. Valeriy Mosher, plan reviewed with attending
[2024-11-07 09:03] LABS: Blood Urea Nitrogen 47 mg/dl (7-17); Calcium 9.2 mg/dl (8.4-10.2); Carbon Dioxide 25 mmol/L (22-30); Chloride 102 mmol/L (98-107); Estimated Creatinine Clearance 11 ml/min; Glucose 124 mg/dl (70-99); Magnesium 2.3 mg/dl (1.6-2.3); Phosphorus 4.4 mg/dl (2.5-4.5); Potassium 4.5 mmol/L (3.5-5.1); Sodium 138 mmol/L (135-145); eGFR 11.06
--- NOTE | 2024-11-07 10:16 | W.CON.NEPH ---
Consultation
-
Date/Time Consultation Requested: 11/07/2024 7:00 AM
Date/Time Consultation Performed: 11/07/2024 1015 AM
Requesting Provider: Dr. Smith
Performing Provider: Dr. Moctezuma
Reason for Consultation: ESRD
Medical History
-
Chief Complaint: ESRD
History of Present Illness:
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
malfunction. Her graft was placed 4 months ago and she was started on dialysis shortly afterwards. Last week she underwent AV graft vascular study due to poor flows. Her function improved and then she received dialysis on and Tuesday
without issue she was actually scheduled for dialysis yesterday and it was noted that her graft had gone down. She then presented to the emergency room for evaluation form vascular surgery.
Past Medical History
Coronary artery disease, bypass grafting, diabetes mellitus type 2, stroke with residual aphasia, hyperlipidemia, peripheral neuropathy
End-stage renal disease TTS
Appendectomy
Hysterectomy
Cholecystectomy
Social History
Tobacco: Non-Smoker
Alcohol: None
Family History
No CKD
Allergies / Home Medications
Allergy/AdvReac Type Severity Reaction Status Date / Time
Cephalosporins Allergy Rash Verified 11/06/24 16:56
penicillin G Allergy Rash Verified 11/06/24 16:56
Penicillins Allergy Rash Verified 11/06/24 16:56
�Medication �Instructions �Recorded �Confirmed �Type
escitalopram oxalate 20 mg tablet 20 mg PO DAILY Mental Health 04/15/16 11/06/24 History
ezetimibe 10 mg tablet 10 mg PO DAILY High Cholesterol 04/15/16 11/06/24 History
famotidine 20 mg tablet 20 mg PO DAILY Gastrointestinal 04/15/16 11/06/24 History
Issue
acetaminophen 650 mg 1,300 mg PO BIDPRN PRN mild pain 01/18/24 11/06/24 History
tablet,extended release
cholecalciferol (vitamin D3) 25 25 mcg PO DAILY Supplement 01/18/24 11/06/24 History
mcg (1,000 unit) tablet
clopidogrel 75 mg tablet 75 mg PO DAILY Blood Clot 01/18/24 11/06/24 History
Prevention/Tx
docusate sodium 100 mg capsule 100 mg PO DAILYPRN PRN constipation 01/18/24 11/06/24 History
(Stool Softener)
insulin glargine 100 unit/mL (3 28 - 32 unit SC HS Diabetes 01/18/24 11/06/24 History
mL) subcutaneous pen (Lantus
Solostar U-100 Insulin)
insulin lispro 100 unit/mL 0 sliding scale dose SC MEALS 01/18/24 11/06/24 History
subcutaneous pen (Humalog KwikPen Diabetes
(U-100) Insulin)
sennosides 8.6 mg tablet (senna) 8.6 mg PO DAILYPRN PRN constipation 01/18/24 11/06/24 History
nifedipine 30 mg tablet,extended 30 mg PO BID HTN #60 tabs 01/23/24 11/06/24 Rx
release
atorvastatin 40 mg tablet 20 mg PO HS High Cholesterol 11/06/24 11/06/24 History
buspirone 5 mg tablet 5 mg PO DAILY Mental Health/Anxiety 11/06/24 11/06/24 History
gabapentin 100 mg capsule 100 mg PO BID Neurological 11/06/24 11/06/24 History
Condition
valsartan 80 mg tablet 80 mg PO HS Blood Pressure 11/06/24 11/06/24 History
vitamin B complex-vitamin C 100 1 tab PO DAILY Supplement 11/06/24 11/06/24 History
mg-folic acid 1 mg tablet
(Dialyvite)
Review of Systems
-
History Source: Patient
All other systems: Negative unless noted
Musculoskeletal: Other (Right upper extremity AV graft with ecchymosis and mild pain)
Neurological: Other (Neuropathy)
Physical Exam
Vital Signs
Vital Signs
Temp Pulse Resp BP Pulse Ox
97.8 F 78 14 138/99 99
11/07/24 07:33 11/07/24 08:40 11/07/24 07:33 11/07/24 08:40 11/07/24 08:51
Lab Results
11/07/24 07:16
11/07/24 07:16
WBC 4.8 10^3/uL (4.8-10.8) 11/07/24 07:16
RBC 3.10 10^6/uL (4.20-5.40) L 11/07/24 07:16
Hgb 9.8 g/dL (12.0-16.0) L 11/07/24 07:16
Hct 30.0 % (37.0-47.0) L 11/07/24 07:16
Plt Count 253 10^3/uL (130-400) 11/07/24 07:16
Sodium 138 mmol/L (135-145) 11/07/24 07:16
Potassium 4.5 mmol/L (3.5-5.1) 11/07/24 07:16
Chloride 102 mmol/L (98-107) 11/07/24 07:16
Carbon Dioxide 25 mmol/L (22-30) 11/07/24 07:16
BUN 47 mg/dl (7-17) H 11/07/24 07:16
Creatinine 4.0 mg/dL (0.6-1.0) H 11/07/24 07:16
eGFR 11.06 11/07/24 07:16
Glucose 124 mg/dl (70-99) H 11/07/24 07:16
Calcium 9.2 mg/dl (8.4-10.2) 11/07/24 07:16
Phosphorus 4.4 mg/dl (2.5-4.5) 11/07/24 07:16
Albumin 4.0 g/dl (3.5-5.0) 11/06/24 17:12
Physical Exam
General: AOx3, Nontoxic , NAD
HEENT: PERRL, EOMI, Anicteric, Conjunctivae Clear, Ear/Nose Intact, Hearing Normal, Oropharynx Clear/Moist, Dentition Intact, Facial Symmetry, Neck Supple, Neck: Trachea Midline, No JVD and No Thyromegaly, no Bruits
Respiratory: Clear to auscultation bilaterally with normal lung exersion
Cardiac: S1/S2 and Regular Rate/Rhythm
Breast: Deferred by me
Abdomen: Soft, Nontender, Nondistended, Normal Bowel Sounds and No Hepatosplenomegaly
Rectal: Deferred by Provider
Genito-urinary: No Costovertebral Tenderness
Extremities: No Clubbing, No Cyanosis and No Edema
Skin: No Rash or open lesions
Neuro: Nonfocal/Grossly Intact, CN II-XII (Intact) and Strength (Musculoskeletal exam 5 out of 5 both upper and lower extremities)
Hematologic/Lymphatic: No Cervical Lymphadenopathy, No Submandibular Lymphadenopathy and No Supraclavicular Lymphadenopathy
Psych: Mood/afflect pleasant, Insight/judgement good and Appropriate
Vascular: plus 1 pedal and radial pulses
Vascular Access: AVG (right upper extremity: no thrill or bruit, noted retained stitch)
Data Reviewed
-
Radiology: Image Personally Visualized and interpreted (Personally reviewed chest x-ray without evidence of congestive heart failure or pneumonic process)
Medical Tests (Nuc Med, Echo etc): Other (EKG report reviewed sinus rhythm with first-degree AV block with possible inferior infarct pattern at 67 bpm )
Labs: Labs Reviewed by me (BMP CBC)
Old Records: Reviewed (Reviewed old nephrology consultation from January 2024 when patient had presented with hypertensive urgency and acute kidney injury)
Assessment/Plan
-
Impression:
End-stage renal disease Tuesday
RUE graft dysfunction
Diabetes
Hypertension
Anemia of CKD
Anxiety
Coronary artery disease with prior history of CABG
History of CVA with residual neurological deficit
Plan:
Vascular surgery to revise AV graft
Once access is established we will provide dialysis
I am unsure will be able to provide that today as she is not going for dialysis till later this evening
She does not meet acute need for dialysis given her electrolytes clear chest x-ray and non uremic status, therefore I may wait until tomorrow to do her dialysis
We will provide BRAD therapy for anemia
Maintain current antihypertensives and dry weight on dialysis in regards to hypertension
Appropriate fluid restriction and dietary restrictions to be implemented in setting of ESRD
--- NOTE | 2024-11-07 11:27 | W.PN.HOSP.TC ---
Today's Communication/Plan
-
Monitor vital signs see plan
N.p.o. for now
Vascular surgery following, plan for or possibly today
Assessment / Plan
Assessment / Plan
General: Other (78y F in no acute distress.)
HEENT: Moist mucous membranes and PERRLA
Respiratory: Clear; No Wheezes, Rales or Rhonchi
Cardiac: S1/S2, Regular Rhythm and Murmur (II/ GREG)
GI: Soft, Non Tender, Non Distended and Normal Bowel Sounds
Musculoskeletal:No Edema
Neuro: AO x 3
Hematologic/Lymphatic: Other (RUE AV Graft without palpable thrill or audible bruit.)
AVG Malfunction
- Vascular Surgery following. possible revision today/tomorrow pending OR schedule
monitor
ESRD on HD
- Stable. No acute HD needs.
- Last HD was Tuesday. T-H-Sat schedule @ [facility].
- Nephrology following for HD needs after graft function is restored.
- Continue current med regimen.
ASCVD
Benign Hypertension
- Stable. No chest pain, dyspnea, etc.
- Continue current CV med regimen including Plavix.
DM-II
- Stable. Continue basal insulin at decreased dose while NPO.
- Follow glucose and cover with SSI as needed.
- Update A1C.
Anxiety / Depression
- Stable. Continue outpatient medications.
DVT Prophylaxis: Subcut Heparin
Code Status: Full
Anticipated Discharge: 24 - 48 hours
Subjective/Interval History
-
Date of Service: November 07, 2024
denies pain
Objective Data
-
Labs:
Laboratory Results
11/07/24 11/07/24
02:28 07:16
WBC 4.8
Hgb 9.8 L
Hct 30.0 L
Plt Count 253
PT 13.5
INR 1.00
APTT 28.2
Sodium 138
Potassium 4.5
Chloride 102
Carbon Dioxide 25
BUN 47 H
Creatinine 4.0 H
Glucose 124 H
Calcium 9.2
Vital Signs:
Vital Signs
Temp Pulse Resp BP Pulse Ox
98.4 F 78 14 144/70 99
11/07/24 11:10 11/07/24 11:10 11/07/24 11:10 11/07/24 11:10 11/07/24 11:10
I&O
11/06/24 11/07/24 11/08/24
06:59 06:59 06:59
Intake Total 720 / 720
Output Total 700 / 700
Balance 20 / 20
--- NOTE | 2024-11-07 12:57 | CM ---
Reviewed the chart notes and spoke with the patient at the bedside. Patient admitted for AVG malfunction. Per note, for AV graft declot and fistulogram today. The patient resides with her spouse in a one story home with two steps to enter. The
patient has a cane, shower chair and rails in her home. The patient receives HD at [facility]. The patient has had [facility] in past, but no SNF. The patient confirmed her pharmacy of choice is the [facility] The patient confirmed her PCP is Anson Bauman. CM continues to be available to patient/family and is monitoring medical plan for needs at discharge.
Plan: Discharge to home when medically stable. No needs anticipated at this time.
[2024-11-07 14:14] LABS: Glycohemoglobin (HgbA1c) 5.6 % (4.0-5.6)
--- NOTE | 2024-11-07 15:23 | W.SUR.PREOP ---
Pre-Operative Surgical Note
-
I have examined this patient prior to the performance of the scheduled procedure.
The patient's condition is unchanged from the time of the current History and
Physical and the patient is able to undergo the scheduled procedure.
--- NOTE | 2024-11-07 15:28 | PTCARENOTE ---
BP this AM was 168/99. AM BP meds administered. Upon recheck, BP came down to 139/99. No new orders at this time.
[2024-11-07 15:42] LABS: Glucose - Point of Care 148 mg/dl (70-99)
--- NOTE | 2024-11-07 17:31 | OR.RPT ---
Operative Report
Operative Report
PROCEDURE DATE: 11/07/24
Preoperative diagnosis:
1. End-stage renal disease on hemodialysis.
2. Thrombosed right upper extremity AV graft.
Postoperative diagnosis: Same
Procedure:
1. Duplex assisted cannulation of right upper extremity AV graft and both peripheral and central facing directions with bilateral sheath access.
2. Right upper extremity fistulogram and central venogram.
3. AngioJet pharmacomechanical thrombectomy right upper extremity AV graft.
4. Balloon angioplasty of outflow vein with 8 mm angioplasty balloon.
5. [id number] Timothy thrombectomy of arterial side of AV graft.
6. Balloon angioplasty of perianastomotic stenosis with 5 mm angioplasty balloon.
7. Supervision and interpretation.
Surgeon: Nomi
Metallurgical Engineering Teacher: None
Complications: None
Anesthesia: Local, sedation
Fluoroscopy:
12.3 min
26 mGy
5.87 Gy.cm2
Indications for procedure:
Thrombosed right upper extremity AV graft. Risk/benefits/alternatives of endovascular thrombectomy were all fully discussed. Patient understood all wished to proceed. Of note, the patient had undergone a procedure just about a week ago for
maintenance of access secondary to what sounds like a thrombotic occlusion of the graft at that point. Patency was restored, but only 2 successful dialysis ensued and then the graft was thrombosed again. I clearly discussed potential
nonsalvageable to this graft. She understood all wished to proceed.
Description of procedure:
Patient was identified, brought to the operating room. Placed on the table in the supine position. After the adequate administration of anesthesia, the patient was prepped and draped in the standard surgical fashion. A standard preoperative
timeout was undertaken and everybody was in agreement with the plan.
Duplex assisted cannulation of the AV graft in both central and peripheral facing directions was done with a micropuncture kits and then advancement of 6 Azeri sheath over a 0.035 inch wire. Note on duplex assisted cannulation, I could note on
duplex that there was thrombus within the graft. Once this was completed, I using a flopping on hydrophilic wire and a glide catheter was able to cannulate the central venous system. The subclavian vein and central veins were patent on the right
side. I then gained 1 higher access into the IVC and then advance my catheter and exchanged for a Storq wire. Now through my arterial facing sheath, I used a flopping of hydrophilic wire and a glide catheter and gain wire access into the distal
brachial artery and then branch artery. I then exchanged for a Storq wire. I now used the AngioJet Solent catheter using power pulse spray mode to power pulse spray 10 mg of tPA through the thrombosed AV graft. The catheter was advanced through
both the arterial and the venous side sheaths. (Sequentially). I allowed this to dwell for 15 to 20 minutes. Once dwell was complete I then activated thrombectomy mode of the AngioJet, and then performed AngioJet thrombectomy of the thrombus.
Completion angiogram through the venous facing sheath demonstrated patent venous outflow. No hold-up of contrast was noted. There may have been a couple areas of stenosis especially at the edge of a pre-existing stent (the remainder of the stent
was patent). I therefore angioplastied the entire outflow vein and outflow venous segment of the graft with an 8 mm angioplasty balloon. Completion angiogram demonstrated good result with no residual stenosis. I now advanced a glide catheter from
my arterial facing sheath into the brachial artery. Angiogram demonstrated patent arterial anastomosis. It looks like there may have been a mild stenosis there or perhaps moderate. I therefore then used a 5 mm angioplasty balloon to balloon that.
Completion angiogram demonstrated still residual slight luminal irregularity there but no definitive severe stenosis. But there did appear to be possible small amount of thrombus. I therefore then used an krig-nbh-owim Timothy to thrombectomize
that. Completion angiogram demonstrated stable findings. At this point I felt that there is nothing further endovascularly to do. I did not wish to go up with a larger balloon across the arterial anastomosis and fear of rupturing the brachial
artery. Therefore at this point the wires and catheters were all withdrawn. 4-0 Monocryl pursestring stitches were placed around the sheath entry sites and the sheath were withdrawn sequentially while the sutures were tied down. Manual pressure
was also applied to the puncture site. Hemostasis was achieved. The patient tolerated the procedure well. Upon completion she had a weak thrill/pulsatility in the AV graft.
The patient tolerated procedure well.
[2024-11-07 17:40] LABS: Glucose - Point of Care 149 mg/dl (70-99)
[2024-11-07 19:08] LABS: Glucose - Point of Care 167 mg/dl (70-99)
[2024-11-07] MEDS: APRESOLINE 5 MG IV ×2 (19:47→22:37)
--- NOTE | 2024-11-07 19:58 | PTCARENOTE ---
PCT called this RN into the pts room at 1845 immediately after returning to the floor from vascular OR with pt complaining of '10/10 chest pain that makes it feel like it's hard for me to breathe.' o2 sat at 100% on room air. Initial BP of 195/87,
HR 74. Right arm site yellow and purple ecchymotic, weak brachial pulse but normal radial pulse. Faint bruit/thrill to cath site, no changed from initial assessment of right arm by this RN with POSTAL CLERK at bedside for handoff. BP rechecked at 209/95
15 minutes later, HR 78. Accucheck 167. Vascular MD, hospitalist, and overnight MANAGING DIRECTOR ATLAS all made aware. Labs and CXR ordered, hydralazine given. Pt urinated 400mL of red tinged tea colored urine on bedpan. Pt expressing pain is still present but some
relief provided. Manual Bp at 1947 of 196/72 with HR of 70. Overnight RN aware of all changes, no new orders at this time, await labs and bedside CXR results.
[2024-11-07 20:13] LABS: Hematocrit 32.2 % (37.0-47.0); Hemoglobin 10.6 g/dL (12.0-16.0); Mean Corp Hgb Conc. 32.9 g/dL (33.0-37.0); Mean Corpuscular Hgb 32.2 pg (27.0-31.0); Mean Corpuscular Volume 97.9 fL (81.0-99.0); Mean Platelet Volume 9.8 fL (7.4-10.4); Platelet Count 271 10^3/uL (130-400); Red Blood Cell Count 3.29 10^6/uL (4.20-5.40); Red Cell Dist. Width 13.4 % (11.5-14.5); White Blood Cell Count 8.6 10^3/uL (4.8-10.8)
[2024-11-07] MEDS: HEPARIN 5000 UNITS SC (20:13)
[2024-11-07] MEDS: LIPITOR 20 MG PO (21:12)
[2024-11-07] MEDS: DIOVAN 80 MG PO (21:22)
[2024-11-07] MEDS: LANTUS 0.14 UNITS SC (21:22)
[2024-11-07 21:23] LABS: Glucose - Point of Care 229 mg/dl (70-99)
[2024-11-07 22:23] LABS: Urine Albumin 3+ (Neg - Trace); Urine Bilirubin Negative (Negative); Urine Character Clear (Clear); Urine Color Red; Urine Glucose 1+ (Negative); Urine Ketone Trace (Negative); Urine Leukocyte Trace (Negative); Urine Nitrite Negative (Negative); Urine Occult Blood 4+ (Negative); Urine Urobilinogen Negative (Neg - 1+)
[2024-11-07 22:44] LABS: Urine Bacteria Few (Negative)
--- NOTE | 2024-11-08 00:19 | W.PN.UPDATE ---
Update Note
Progress Note Update
Notified by RN patient sc/o SOB, Chest pain, and HTN. SBP in 190s, RA 100% afebrile. Upon visit, patient reports SOB has resolved, chest 'pressure' has improved but still there. She also c/o having the 'shakes' which she has not experienced before.
Rx STAT CXR, BMP, CBC, and troponin. CBC and CXR unremarkable. Unable to get BMP and Troponin as blood sample hemolyzed multiple times. During this time patient also had dark urine that turned pink tinged. UA sent +occult blood. Discussed with
nephrology certified professional coder - no new recommendations at this time.
Plan
- Nursing to continue to monitor urine output
- Continue to monitor BP
- scheduled for HD in the AM - labs to be drawn at HD.
[2024-11-08] MEDS: TRANDATE 5 MG IV (00:30)
[2024-11-08 02:00] VITALS: BP 171/69
[2024-11-08 02:17] VITALS: BP 171/69
[2024-11-08 03:19] VITALS: BP 123/78
[2024-11-08 04:59] VITALS: BMI 26.0
[2024-11-08 05:43] VITALS: BP 134/55
[2024-11-08 06:55] LABS: % Eosinophils 0.4 % (0-6); % Immature Granulocytes 0.4 % (0-0.5); % Lymphocytes 12.9 % (20.5-51.1); % Monocytes 10.9 % (1.7-9.3); % Neutrophils 74.4 % (42.2-75.2); Absolute Basophils 0.1 10^3/uL (0-0.2); Absolute Lymphocytes 0.9 10^3/uL (1.2-3.4); Absolute Monocytes 0.8 10^3/uL (0.1-0.6); Absolute Neutrophils 5.4 10^3/uL (1.4-6.5); Hematocrit 30.6 % (37.0-47.0); Hemoglobin 10.2 g/dL (12.0-16.0); Mean Corp Hgb Conc. 33.3 g/dL (33.0-37.0); Mean Corpuscular Hgb 31.6 pg (27.0-31.0); Mean Corpuscular Volume 94.7 fL (81.0-99.0); Mean Platelet Volume 9.7 fL (7.4-10.4); Nucleated Red Blood Cells % 0 %; Platelet Count 253 10^3/uL (130-400); Red Blood Cell Count 3.23 10^6/uL (4.20-5.40); Red Cell Dist. Width 13.5 % (11.5-14.5); White Blood Cell Count 7.3 10^3/uL (4.8-10.8)
[2024-11-08 07:08] LABS: Blood Urea Nitrogen 55 mg/dl (7-17); Calcium 9.3 mg/dl (8.4-10.2); Carbon Dioxide 24 mmol/L (22-30); Chloride 104 mmol/L (98-107); Estimated Creatinine Clearance 11 ml/min; Glucose 217 mg/dl (70-99); Potassium 4.9 mmol/L (3.5-5.1); Sodium 137 mmol/L (135-145); eGFR 12.15
[2024-11-08 07:17] VITALS: BP 156/64
[2024-11-08 08:14] LABS: Glucose - Point of Care 213 mg/dl (70-99)
--- NOTE | 2024-11-08 08:14 | W.PN.VS ---
Today's Communication / Plan
-
Patient seen and evaluated bedside with Dr. Valeriy Mosher, plan reviewed with attending.
Assessment/Plan
-
Assessment: 78-year-old female end-stage renal disease POD #1
1. Duplex assisted cannulation of right upper extremity AV graft and both peripheral and central facing directions with bilateral sheath access.
2. Right upper extremity fistulogram and central venogram.
3. AngioJet pharmacomechanical thrombectomy right upper extremity AV graft.
4. Balloon angioplasty of outflow vein with 8 mm angioplasty balloon.
5. Ccty-ndu-xgec Timothy thrombectomy of arterial side of AV graft.
6. Balloon angioplasty of perianastomotic stenosis with 5 mm angioplasty balloon.
7. Supervision and interpretation.
Plan:
Attempting HD today, if AV graft cannot be accessed then patient will require catheter placement and will have to follow-up in the outpatient setting for creation of new AV graft vs. AV fistula
Patient usually follows with vascular surgeons at [facility], patient can follow-up with her prior vascular surgeon or can see us in the outpatient setting.
Subjective Data
-
Date of Service: November 08, 2024
Patient seen and examined at bedside, offers no complaints. Reports well-managed post fistulogram pain at right upper extremity AV graft. HD RN at bedside, will be attempting HD shortly.
Objective Data
-
Vital Signs
Temp Pulse Resp BP Pulse Ox
99.4 F 77 22 156/64 95
11/08/24 07:17 11/08/24 07:17 11/08/24 07:17 11/08/24 07:17 11/08/24 07:17
Intake and Output
11/07/24 11/08/24 11/09/24
06:59 06:59 06:59
Intake Total 720 / 720 500 / 500
Output Total 700 / 700
Balance 500 / 500
Intake:
Oral fluids 720 / 720 450 / 450
IV fluids (Total) 50 / 50
NSS 50 / 50
Output:
Urine, Mejia 700 / 700
Other:
Number of approximated MODERATE 1 4
amounts of urine
Lab Results
11/08/24 06:40
11/08/24 06:40
Calcium 9.3 mg/dl (8.4-10.2) 11/08/24 06:40
Calcium Cancelled 11/08/24 06:40
Phosphorus 4.4 mg/dl (2.5-4.5) 11/07/24 07:16
Magnesium 2.3 mg/dl (1.6-2.3) 11/07/24 07:16
Total Bilirubin 0.3 mg/dl (0.2-1.3) 11/06/24 17:12
AST 20 U/L (14-36) 11/06/24 17:12
ALT 15 U/L (0-35) 11/06/24 17:12
Alkaline Phosphatase 64 U/L (38-126) 11/06/24 17:12
Total Protein 6.2 g/dl (6.3-8.2) L 11/06/24 17:12
Albumin 4.0 g/dl (3.5-5.0) 11/06/24 17:12
Physical Exam
-
No apparent distress, resting in chair comfortably
No tachycardia
No dyspnea on room air
Right upper extremity AVG CDI, all surrounding compartments soft, palpable thrill, right hand warm
[2024-11-08] MEDS: LEXAPRO 20 MG PO (08:55)
[2024-11-08] MEDS: NEURONTIN 100 MG PO (08:55)
[2024-11-08] MEDS: HEPARIN SC (08:55)
[2024-11-08] MEDS: BUSPAR 5 MG PO (08:56)
[2024-11-08] MEDS: PLAVIX 75 MG PO (08:56)
[2024-11-08] MEDS: PROCARDIA XL (EXTENDED RELEASE) 30 MG PO (08:57)
--- NOTE | 2024-11-08 09:19 | W.PN.NEPH.HD ---
Assessment
-
Patient seen on dialysis
Events reviewed from last evening when patient had chest pressure after surgical procedure, unsure if troponin levels were drawn or EKG was done
aVG working this morning after PCI procedure last evening this morning but after discussion bulk materials handling plant operator surgery we are unsure if this will have long-term durability based on low flow rates
Progress Note - Hemodialysis
-
Date of Service: November 08, 2024
Duration: 4 hours
Potassium Bath: 2
Opti-Dialyzer: 160
Ultrafiltration: Other (1 kg as patient is actually under dry weight)
Blood Flow: 400
Dialysate Flow: 600
Heparin: None
EPO: 4000
[2024-11-08] MEDS: RETACRIT 4000 UNITS IV (09:40)
--- NOTE | 2024-11-08 11:10 | W.PN.HOSP.TC ---
Addendum entered and electronically signed by Jose Luis Smith MD 11/08/24 14:13:
troponin not significant. Discussed with vascular surgery and nephrology. Okay to discharge home today. Patient will follow-up with vascular at [facility]. Received dialysis session today. Discussed with patient.
Time of discharge 39 minutes
Original Note:
Today's Communication/Plan
-
Monitor vital signs see plan
HD today
Check troponin
Continue with blood pressure medications
Assessment / Plan
Assessment / Plan
General: Other (78y F in no acute distress.)
HEENT: Moist mucous membranes and PERRLA
Respiratory: Clear; No Wheezes, Rales or Rhonchi
Cardiac: S1/S2, Regular Rhythm and Murmur (II/ GREG)
GI: Soft, Non Tender, Non Distended and Normal Bowel Sounds
Musculoskeletal:No Edema
Neuro: AO x 3
Hematologic/Lymphatic: Other (RUE AV Graft)
AVG Malfunction
- Vascular Surgery following. s/p OR 11/07.
Attempting HD today, if AV graft cannot be accessed then patient will require catheter placement and will have to follow-up in the outpatient setting for creation of new AV graft vs. AV fistula
has limited flow on HD; patient will need to f/u outpatient
monitor
ESRD on HD
- Stable. No acute HD needs.
- Last HD was Tuesday. T-H-Sat schedule @ [place] [facility].
- Nephrology following for HD needs after graft function is restored.
- Continue current med regimen.
HD 11/08
Chest discomfort 11/07; appears panic attack
could also be hypertensive urgency
EKG not ischemic
Chest x-ray normal
Currently denies any chest pain, shortness of breath
check trop
ASCVD
Benign Hypertension
- Stable. No chest pain, dyspnea, etc.
- Continue current CV med regimen including Plavix.
DM-II
- Stable. Continue basal insulin
- Follow glucose and cover with SSI as needed.
- Update A1C 5.6
Anxiety / Depression
- Stable. Continue outpatient medications.
DVT Prophylaxis: Subcut Heparin
Code Status: Full
Anticipated Discharge: Within 24 hours
Subjective/Interval History
-
Date of Service: November 08, 2024
Denies pain
Objective Data
-
Labs:
Laboratory Results
11/07/24 11/08/24 11/08/24
22:39 06:40 06:40
WBC 7.3
Hgb 10.2 L
Hct 30.6 L
Plt Count 253
Sodium Cancelled Cancelled 137
Potassium Cancelled Cancelled
Chloride Cancelled
Carbon Dioxide Cancelled
BUN Cancelled
Creatinine Cancelled
Glucose Cancelled
Calcium Cancelled
11/08/24 11/08/24 11/08/24
06:40 06:40 06:40
WBC
Hgb
Hct
Plt Count
Sodium
Potassium 4.9
Chloride Cancelled 104
Carbon Dioxide Cancelled 24
BUN Cancelled
Creatinine
Glucose
Calcium
11/08/24 11/08/24 11/08/24
06:40 06:40 06:40
WBC
Hgb
Hct
Plt Count
Sodium
Potassium
Chloride
Carbon Dioxide
BUN 55 H
Creatinine Cancelled 3.7 H
Glucose Cancelled 217 H
Calcium Cancelled
11/08/24
06:40
WBC
Hgb
Hct
Plt Count
Sodium
Potassium
Chloride
Carbon Dioxide
BUN
Creatinine
Glucose
Calcium 9.3
Vital Signs:
Vital Signs
Temp Pulse Resp BP Pulse Ox
99.4 F 77 22 176/81 95
11/08/24 07:17 11/08/24 07:17 11/08/24 07:17 11/08/24 08:57 11/08/24 07:17
I&O
11/07/24 11/08/24 11/09/24
06:59 06:59 06:59
Intake Total 720 / 720 500 / 500
Output Total 700 / 700
Balance 500 / 500
[2024-11-08 11:20] VITALS: BP 134/60
[2024-11-08 12:25] LABS: Troponin I 0.024 ng/ml
[2024-11-08 12:37] LABS: Glucose - Point of Care 129 mg/dl (70-99)
--- NOTE | 2024-11-08 12:48 | CM ---
Reviewed the chart notes and spoke with the patient while on HD. IMM reviewed and placed on chart. CM continues to be available to patient/family and is monitoring medical plan for needs at discharge.
Plan: Discharge to home when medically stable. No anticipated needs identified at this time.
--- NOTE | 2024-11-08 14:14 | W.DCSUMMARY ---
Discharge Summary
Discharge Data
Date of Admission: 11/06/24
Date of Discharge: 11/08/24
-
Pending Results: No
Hospital Course
78-year-old female with past medical history of ESRD on hemodialysis, AV graft, diabetes mellitus 2, hypertension, anxiety, depression came to the hospital with AV graft malfunction. Patient was seen by vascular surgery and was taken to the OR on
11/07/2024. Patient's graft was fixed by vascular surgery however still had mild limited flow however was able to complete HD session. Vascular surgery instructed patient to follow-up outpatient with either her own vascular surgery at [facility] or
[facility]. Patient continued to feel better after dialysis. She also had an episode of chest discomfort which was likely secondary to panic attack. EKG and troponin both were normal. Over time since her symptoms continue to improve,
she was then discharged home with instructions to follow-up with all her physicians outpatient.
Discharge Plan
-
Patient Disposition: Home (Routine Discharge)
Discharge Diagnosis/Procedures: AV graft malfunction s/p Duplex assisted cannulation of right upper extremity AV graft and both peripheral and central facing directions with bilateral sheath access, Right upper extremity fistulogram and central
venogram,AngioJet pharmacomechanical thrombectomy right upper extremity AV graft, Balloon angioplasty of outflow vein with 8 mm angioplasty balloon, [id number] Timothy thrombectomy of arterial side of AV graft, Balloon angioplasty of
perianastomotic stenosis with 5 mm angioplasty balloon.
ESRD on hemodialysis
Condition: Good
Diet: As tolerated
Activity: As tolerated
Driving Restrictions: As prior to admission
Bathing Restrictions: None
Stand Alone Forms: DC Instr - Vascular OR
Referrals:
Anson Bauman MD [Family Provider] - in less than 1 week
Valeriy Mosher MD [Active] - (Recommend that you follow-up with your vascular surgeon at [facility] for continued surveillance of AV graft or you can follow-up in our office as needed)
Prescriptions:
Continued
famotidine 20 MG tablet
20 mg PO DAILY
escitalopram oxalate 20 MG tablet
20 mg PO DAILY
ezetimibe 10 MG tablet
10 mg PO DAILY
sennosides [senna] 8.6 mg Tablet
8.6 mg PO DAILYPRN PRN (Reason: constipation)
clopidogrel 75 mg Tablet
75 mg PO DAILY
acetaminophen 650 mg Tablet Extended Release
1,300 mg PO BIDPRN PRN (Reason: mild pain)
docusate sodium [Stool Softener] 100 mg Capsule
100 mg PO DAILYPRN PRN (Reason: constipation)
insulin lispro [Humalog KwikPen Insulin] 100 unit/mL Insulin Pen
0 sliding scale dose SC MEALS
Rx Instructions:
11/06/2024, if BS 100-149 = 5 units; 150-200 = 6 units; 201-250 = 7 units; 250-300 = 8 units.
cholecalciferol (vitamin D3) 25 mcg (1,000 unit) Tablet
25 mcg PO DAILY
insulin glargine [Lantus Solostar U-100 Insulin] 100 unit/mL (3 mL) Insulin Pen
28 - 32 unit SC HS
nifedipine 30 mg Tablet Extended Release
30 mg PO BID Qty: 60 2RF
atorvastatin 40 mg Tablet
20 mg PO HS
buspirone 5 mg Tablet
5 mg PO DAILY
valsartan 80 mg Tablet
80 mg PO HS
Dialyvite 100-1 mg Tablet
1 tab PO DAILY
gabapentin 100 mg Capsule
100 mg PO BID
Discharge Orders:
Discharge Patient (As Directed); Ordered 11/08/24
Ordered By: Jose Luis Smith
Discharge Date and Time
Discharge Date/Time: 11/08/24 15:27
Print Language: TUNISIAN
[2024-11-08 16:50] LABS: Hepatitis B Surface Antigen Negative (Negative)
[2024-11-08 17:47] LABS: Hepatitis C Antibody Negative (Negative)
== END 2024-11-08 15:27 | disposition home or self-care (01) | DRG 252 ==
LOC: 2 NORTH 22:25
PROVIDERS: Nurse Practitioner Gerontology; Physician Assistant; ADMITTING PHYSICIAN Hospitalist; ATTENDING PHYSICIAN Internal Medicine; EMERGENCY PHYSICIAN Emergency Medicine; FAMILY PHYSICIAN Internal Medicine; OTHER PHYSICIAN Specialist; OTHER PHYSICIAN Surgery Vascular Surgery
PROC: 03C73ZZ Extirpation of Matter from Right Brachial Artery, Percutaneous Approach (ICD-10-PCS; 2024-11-07)
PROC: 057 Upper Veins, Dilation (ICD-10-PCS; 2024-11-07)
PROC: 03WY37Z Revision of Autologous Tissue Substitute in Upper Artery, Percutaneous Approach (ICD-10-PCS; 2024-11-07)
PROC: 5A1D70Z Performance of Urinary Filtration, Intermittent, Less than 6 Hours Per Day (ICD-10-PCS; 2024-11-08)
DX: T82.511A Breakdown (mechanical) of surgically created arteriovenous shunt, initial encounter (principal); N18.6 End stage renal disease; I12.0 Hypertensive chronic kidney disease with stage 5 chronic kidney disease or end stage renal disease; Y71.2 Prosthetic and other implants, materials and accessory cardiovascular devices associated with adverse incidents; T82.510A Breakdown (mechanical) of surgically created arteriovenous fistula, initial encounter; E11.22 Type 2 diabetes mellitus with diabetic chronic kidney disease; I69.320 Aphasia following cerebral infarction; F41.0 Panic disorder [episodic paroxysmal anxiety]; I25.10 Atherosclerotic heart disease of native coronary artery without angina pectoris; Z95.1 Presence of aortocoronary bypass graft; Z79.84 Long term (current) use of oral hypoglycemic drugs; E11.42 Type 2 diabetes mellitus with diabetic polyneuropathy; F32.A Depression, unspecified; I16.0 Hypertensive urgency
CPT/HCPCS: 36905; 71045; 71046; 80048; 80053; 81003; 81015; 82962; 83036; 83735; 84100; 84484; 85025; 85027; 85610; 85730; 86803; 87070; 87340; 93005; 93880; 99285; C1725; C1757; C1769; C1894; G0257; J2997; Q5106; Q9967